=== PATIENT | female | born 1935 | race Caucasian/White ===

== ENCOUNTER 2018-12-07 10:02 | Inpatient (IN) ==
[2018-12-07] MEDS ORDERED: CARVEDILOL 6.25 MG TABLET PO ONE (10:30)
--- NOTE | 2018-12-07 11:00 | XRay Report ---
CLINICAL INFORMATION: weakness COMPARISON: 12/03/2018 FINDINGS: Moderate cardiomegaly is noted. Slight thoracic aortic ectasia is stable - the remaining mediastinum and pulmonary vessels are unremarkable. There is minor bibasilar atelectasis, but no mario infiltrates or effusions IMPRESSION: No acute disease Interpreted and Authenticated by: Johan Mcclain 12/07/18
[2018-12-07 11:32] LABS: Basophils # (Auto) 0 K/mcL (0.0-0.3); Basophils % (Auto) 0.2 % (0.0-2.0); Eosinophils # (Auto) 0.2 K/mcL (0.0-0.7); Eosinophils % (Auto) 1.3 % (0.0-7.0); Granulocytes % (Auto) 79.8 % (38.0-78.0); Hematocrit 37.9 % (36.0-48.0); Lymphocytes # (Auto) 1.5 K/mcL (1.5-4.8); Mean Cell Volume 93.5 fL (80.0-100.0); Mean Corpuscular HGB Conc 31.6 g/dL (31.0-36.0); Mean Platelet Volume 8.8 fL (7.4-10.4); Monocytes # (Auto) 0.8 K/mcL (0.1-0.9); Monocytes % (Auto) 6.7 % (1.0-12.0); Platelet Count 317 K/mcL (140-440); RBC 4.05 M/mcL (4.00-5.20); WBC 12.5 K/mcL (4.5-11.0)
--- NOTE | 2018-12-07 11:32 | Emergency Department Note ---
SOB HPI - General Chief Complaint: Shortness of Breath/Dyspnea Stated Complaint: Shortness of breath Time Seen by Provider: 12/07/18 10:08 Source: patient Mode of arrival: wheelchair Limitations: no limitations - History of Present Illness 83-year-old female presents today at the emergency department with new onset A. fib, and was seen by her primary care in [facility]. She was instructed to come the emergency department. She states that she has felt tired for about one month. She denies any chest pains, or difficulty breathing. She has occasionally felt short of breath. She denies any edema. She currently is taking atorvastatin 80 mg tablet, frusemide 40 mg tablet, magnesium 400 mg capsule, metoprolol 25 mg extended release, and omeprazole 20 mg extended release. She takes 20 mEq of potassium chloride and 400 mg of Advil at bedtime. All of the other remaining medications are once a day dosing. She reports that she feels relatively well. She apparently has not been seen by primary care provider for over a year, and when she was seen by her primary care provider last week there is a noticeable increase in the creatinine level which on December 03, 2018 this was 3.63, BUN was 60.33, and GFR 12.70. The rest of the CMP is unremarkable. Her white count was 13.07, hemoglobin and hematocrit was normal. Platelets normal at 341. Prior records show that she has had a reversible inferior wall defect on the nuclear imaging of the arch and ejection fraction was 41% back in 2015. - Related Data Home Medications Medication Instructions Recorded Confirmed Aspirin [Casa Chewable Aspirin] 81 mg PO DAILY 03/01/16 12/07/18 Atorvastatin [Lipitor] 80 mg PO HS 03/01/16 12/07/18 Metoprolol Succinate [Toprol Xl] 25 mg PO DAILY 03/01/16 12/07/18 Omeprazole [Prilosec] 20 mg PO DAILY 03/01/16 12/07/18 Furosemide [Lasix] 40 mg PO DAILYP PRN 12/07/18 12/07/18 Magnesium Oxide [Magnesium] 400 mg PO HS 12/07/18 12/07/18 Potassium Chloride [Kdur] 20 meq PO DAILY 12/07/18 12/07/18 Allergies Allergy/AdvReac Type Severity Reaction Status Date / Time Zolpidem AdvReac Severe Vomiting Verified 03/01/16 15:30 Review of Systems All systems ED: reviewed and negative except as stated. Past Medical History - Past Medical History Medical history: Reports: CHF, hypertension, renal disease Surgical history ED: Reports: colostomy - Social History smoking status: Former smoker Physical Exam Limitations: no limitations General appearance: alert, in no apparent distress Eye: Present: normal appearance, PERRL, EOMI. Absent: scleral icterus, conjunctival injection ENT: mucous membranes dry Neck: Present: normal inspection, full ROM, trachea midline. Absent: lymph adenopathy, thyromegaly Chest: Present: normal inspection, symmetric chest wall rise Respiratory: Present: normal lung sounds bilaterally. Absent: respiratory distress, rales/crackles, wheezes, stridor, accessory muscle use, prolonged expiratory phase Cardiovascular: Present: regular rate, normal rhythm. Absent: systolic murmur, diastolic murmur Abdominal: Present: soft. Absent: distention, tenderness, guarding, rebound, rigidity, organomegaly, mass Extremities: Present: normal inspection, full ROM, normal capillary refill. Absent: pedal edema, pretibial edema, calf tenderness Back: Present: normal inspection. Absent: CVA tenderness (R), CVA tenderness (L) Neurological: Present: alert, oriented X3 Psychiatric: Present: normal affect, normal mood Skin: Present: warm, dry Course Vital Signs Respiratory Rate 18 12/07/18 10:06 Pulse Oximetry (%) 94 12/07/18 10:06 Pulse Rate 99 H 12/07/18 16:17 Respiratory Rate 19 12/07/18 16:17 Blood Pressure 102/91 12/07/18 16:16 Pulse Oximetry (%) 98 12/07/18 16:17 Shortness of Breath/Dyspnea - [facility] Narrative Medical decision making narrative: Labs from March 02, 2016 showed a creatinine level of 3.1, and what appears to be in a hospital stay the course of the labs seem to improve over the next 3 days and then March 05, 2016 creatinine level was 1.4. Urinalysis today is showing leukocytes, red blood cells, and few bacteria. Patient was given 1 g Rocephin IV to treat UTI. Troponin level today is negative and the TSH is normal. She did show A. fib with RVR and rate of 140. She was given oral AV nodule katia, and the rate did decrease below 100 and was sustained around 95.Patient has new onset A. fib and will be admitted to medical floor at [facility]. Dr Dee accepted the patient for admission. Patient was given 500 mL of normal saline here in the emergency department for hydration. She does have very dry mucous membranes. She has no edema, and her chest x-ray looks rather well. Her proBNP is elevated at 7673, but the kidney function may improve with hydration. Dr. Taylor had also seen the patient today and he had spoke with cardiology. Patient will be admitted to [facility]. - Lab Data Result diagrams: 12/07/18 10:50 12/07/18 10:50 Lab Results 12/07/18 12/07/18 12/07/18 Range/Units 10:50 10:50 10:50 WBC 12.5 H (4.5-11.0) K/mcL RBC 4.05 (4.00-5.20) M/mcL Hgb 12.0 (12.0-15.0) g/dL Hct 37.9 (36.0-48.0) % MCV 93.5 (80.0-100.0) fL MCH 29.5 (26.0-34.0) pg MCHC 31.6 (31.0-36.0) g/dL RDW 14.0 (11.5-14.5) % Plt Count 317 (140-440) K/mcL MPV 8.8 (7.4-10.4) fL Gran % 79.8 H (38.0-78.0) % Lymph % (Auto) 12.0 L (15.5-49.0) % [place] % (Auto) 6.7 (1.0-12.0) % Eos % (Auto) 1.3 (0.0-7.0) % Baso % (Auto) 0.2 (0.0-2.0) % Gran # 10.0 H (1.8-8.0) K/mcL Lymph # (Auto) 1.5 (1.5-4.8) K/mcL [place] # (Auto) 0.8 (0.1-0.9) K/mcL Eos # (Auto) 0.2 (0.0-0.7) K/mcL Baso # (Auto) 0 (0.0-0.3) K/mcL VBG Lactic Acid (0.5-2.0) mmol/L Sodium 140 (133-145) mmol/L Potassium 4.2 (3.3-5.1) mmol/L Chloride 111 H (96-108) mmol/L Carbon Dioxide 12 L (22-30) mmol/L Anion Gap 17.0 H (8-16) BUN 54 H (8-23) mg/dl Creatinine 3.0 H (0.6-1.1) mg/dl GFR Calculation 14 Glucose 121 H (70-105) mg/dL Calcium 8.4 L (8.6-10.4) mg/dl Total Bilirubin 0.2 (0.0-1.0) mg/dL AST 22 (0-37) U/l ALT 20 (0-40) U/l Alkaline Phosphatase 126 H (39-117) U/L Troponin T < 0.01 (0-0.03) ng/ml NT-Pro-B Natriuret Pep (0-450) pg/ml Total Protein 7.6 (5.9-8.4) gm/dL Albumin 3.2 (3.2-5.2) gm/dL Globulin 4.4 H (2.2-3.7) gm/dL Albumin/Globulin Ratio 0.7 L (1.0-2.3) Procalcitonin (<0.10) ng/mL Urine Color Urine Appearance Urine pH (5.0-9.0) Ur Specific [place] (1.000-1.035) Urine Protein (NEG) mg/dL Urine Glucose (UA) (NEG) mg/dL Urine Ketones (NEG) mg/dL Urine Occult Blood (<0.03) mg/dL Urine Nitrate (NEG) Urine Bilirubin (NEG) mg/dL Urine Urobilinogen (NEG) mg/dL Ur Leukocyte Esterase (NEG) /uL Urine RBC (0-1) /hpf Urine WBC (0-4) /hpf Ur Squamous Epith Cells (0-4) /hpf Ur Transition Epith Cell (0-2) /hpf Ur Renal Epithelial Cell (0-2) /hpf Amorphous Crystals (0) /hpf Urine Bacteria (0) /hpf Hyaline Casts (0-2) /lpf Ur Culture Indicated? 12/07/18 12/07/18 12/07/18 Range/Units 10:50 10:50 11:32 WBC (4.5-11.0) K/mcL RBC (4.00-5.20) M/mcL Hgb (12.0-15.0) g/dL Hct (36.0-48.0) % MCV (80.0-100.0) fL MCH (26.0-34.0) pg MCHC (31.0-36.0) g/dL RDW (11.5-14.5) % Plt Count (140-440) K/mcL MPV (7.4-10.4) fL Gran % (38.0-78.0) % Lymph % (Auto) (15.5-49.0) % [place] % (Auto) (1.0-12.0) % Eos % (Auto) (0.0-7.0) % Baso % (Auto) (0.0-2.0) % Gran # (1.8-8.0) K/mcL Lymph # (Auto) (1.5-4.8) K/mcL [place] # (Auto) (0.1-0.9) K/mcL Eos # (Auto) (0.0-0.7) K/mcL Baso # (Auto) (0.0-0.3) K/mcL VBG Lactic Acid (0.5-2.0) mmol/L Sodium (133-145) mmol/L Potassium (3.3-5.1) mmol/L Chloride (96-108) mmol/L Carbon Dioxide (22-30) mmol/L Anion Gap (8-16) BUN (8-23) mg/dl Creatinine (0.6-1.1) mg/dl GFR Calculation Glucose (70-105) mg/dL Calcium (8.6-10.4) mg/dl Total Bilirubin (0.0-1.0) mg/dL AST (0-37) U/l ALT (0-40) U/l Alkaline Phosphatase (39-117) U/L Troponin T (0-0.03) ng/ml NT-Pro-B Natriuret Pep 7673.0 H (0-450) pg/ml Total Protein (5.9-8.4) gm/dL Albumin (3.2-5.2) gm/dL Globulin (2.2-3.7) gm/dL Albumin/Globulin Ratio (1.0-2.3) Procalcitonin 0.12 (<0.10) ng/mL Urine Color Yellow Urine Appearance Turbid Urine pH 6.0 (5.0-9.0) Ur Specific [place] 1.015 (1.000-1.035) Urine Protein 100 A (NEG) mg/dL Urine Glucose (UA) Negative (NEG) mg/dL Urine Ketones Neg (NEG) mg/dL Urine Occult Blood 0.2 A (<0.03) mg/dL Urine Nitrate Neg (NEG) Urine Bilirubin Neg (NEG) mg/dL Urine Urobilinogen Neg (NEG) mg/dL Ur Leukocyte Esterase 500 A (NEG) /uL Urine RBC > 182 H (0-1) /hpf Urine WBC > 182 H (0-4) /hpf Ur Squamous Epith Cells 16 H (0-4) /hpf Ur Transition Epith Cell (0-2) /hpf Ur Renal Epithelial Cell (0-2) /hpf Amorphous Crystals (0) /hpf Urine Bacteria Few A (0) /hpf Hyaline Casts 28 H (0-2) /lpf Ur Culture Indicated? No 12/07/18 12/07/18 Range/Units 14:31 14:55 WBC (4.5-11.0) K/mcL RBC (4.00-5.20) M/mcL Hgb (12.0-15.0) g/dL Hct (36.0-48.0) % MCV (80.0-100.0) fL MCH (26.0-34.0) pg MCHC (31.0-36.0) g/dL RDW (11.5-14.5) % Plt Count (140-440) K/mcL MPV (7.4-10.4) fL Gran % (38.0-78.0) % Lymph % (Auto) (15.5-49.0) % [place] % (Auto) (1.0-12.0) % Eos % (Auto) (0.0-7.0) % Baso % (Auto) (0.0-2.0) % Gran # (1.8-8.0) K/mcL Lymph # (Auto) (1.5-4.8) K/mcL [place] # (Auto) (0.1-0.9) K/mcL Eos # (Auto) (0.0-0.7) K/mcL Baso # (Auto) (0.0-0.3) K/mcL VBG Lactic Acid 1.2 (0.5-2.0) mmol/L Sodium (133-145) mmol/L Potassium (3.3-5.1) mmol/L Chloride (96-108) mmol/L Carbon Dioxide (22-30) mmol/L Anion Gap (8-16) BUN (8-23) mg/dl Creatinine (0.6-1.1) mg/dl GFR Calculation Glucose (70-105) mg/dL Calcium (8.6-10.4) mg/dl Total Bilirubin (0.0-1.0) mg/dL AST (0-37) U/l ALT (0-40) U/l Alkaline Phosphatase (39-117) U/L Troponin T (0-0.03) ng/ml NT-Pro-B Natriuret Pep (0-450) pg/ml Total Protein (5.9-8.4) gm/dL Albumin (3.2-5.2) gm/dL Globulin (2.2-3.7) gm/dL Albumin/Globulin Ratio (1.0-2.3) Procalcitonin (<0.10) ng/mL Urine Color Yellow Urine Appearance Cloudy Urine pH 6.0 (5.0-9.0) Ur Specific [place] 1.020 (1.000-1.035) Urine Protein 100 A (NEG) mg/dL Urine Glucose (UA) Negative (NEG) mg/dL Urine Ketones Neg (NEG) mg/dL Urine Occult Blood 2+ (moderate) A (<0.03) mg/dL Urine Nitrate Neg (NEG) Urine Bilirubin Neg (NEG) mg/dL Urine Urobilinogen Norm (NEG) mg/dL Ur Leukocyte Esterase 3+ (large) A (NEG) /uL Urine RBC 6 H (0-1) /hpf Urine WBC > 182 H (0-4) /hpf Ur Squamous Epith Cells 0 (0-4) /hpf Ur Transition Epith Cell 1 (0-2) /hpf Ur Renal Epithelial Cell 1 (0-2) /hpf Amorphous Crystals Mod A (0) /hpf Urine Bacteria Mod (0) /hpf Hyaline Casts (0-2) /lpf Ur Culture Indicated? No - Radiology Data Ordering Physician: Jomar Taylor M.D. Date of Service: 12/07/18 Procedure(s): XR chest 1V portable Accession Number(s): [id number] CLINICAL INFORMATION: weakness COMPARISON: 12/03/2018 FINDINGS: Moderate cardiomegaly is noted. Slight thoracic aortic ectasia is stable - the remaining mediastinum and pulmonary vessels are unremarkable. There is minor bibasilar atelectasis, but no mario infiltrates or effusions IMPRESSION: No acute disease Interpreted and Authenticated by: Johan Mcclain 12/07/18 1056 Disposition Pt seen by [facility] only: No (Dr. Taylor) Clinical Impression: UTI (urinary tract infection), A-fib Disposition: Xfer As Inpt ([facility]) Condition: Fair Referrals: Oliverio Yanez PAMarek[facility] [Primary Care Provider] -
[2018-12-07 11:53] LABS: ALT/SGPT 20 U/l (0-40); AST/SGOT 22 U/l (0-37); Albumin 3.2 gm/dL (3.2-5.2); Albumin/Globulin Ratio 0.7 (1.0-2.3); Alkaline Phosphatase 126 U/L (39-117); Bilirubin,Total 0.2 mg/dL (0.0-1.0); Blood Urea Nitrogen 54 mg/dl (8-23); Calcium 8.4 mg/dl (8.6-10.4); Carbon Dioxide 12 mmol/L (22-30); Chloride 111 mmol/L (96-108); Globulin 4.4 gm/dL (2.2-3.7); Glomerular Filtration Rate 14; Glucose 121 mg/dL (70-105); Potassium 4.2 mmol/L (3.3-5.1); Sodium 140 mmol/L (133-145)
[2018-12-07 12:07] LABS: Appearance,Urine TURBID; Bacteria,Urine FEW /hpf (0); Bilirubin,Urine NEG (NEG); Color,Urine YELLOW; Culture Indicated,Urine NO; Glucose,Urine (UA) NEGATIVE (NEG); Ketones,Urine NEG (NEG); Leukocyte Esterase,Urine 500 /uL (NEG); Nitrate,Urine NEG (NEG); Protein,Urine 100 mg/dL (NEG); Specific Gravity,Urine 1.015 (1.000-1.035); Urine Blood 0.2 mg/dL (<0.03); Urine Hyaline Cast 28 /lpf (0-2); Urine RBC > 182 /hpf (0-1); Urine Squamous Epithelial Cell 16 /hpf (0-4); Urine WBC > 182 /hpf (0-4); Urobilinogen,Urine NEG (NEG)
[2018-12-07] MEDS ORDERED: 0.9 % SODIUM CHLORIDE 500 ML IV ONE (12:22)
[2018-12-07] MEDS ORDERED: ASPIRIN 81 MG TAB.CHEW CHEWED ONE (12:49)
[2018-12-07] MEDS ORDERED: cefTRIAXone 1 GM VIAL IM ONE (12:57)
[2018-12-07] MEDS ORDERED: cefTRIAXone 1 GM VIAL IV ONE (13:22)
--- NOTE | 2018-12-07 14:50 | Internal Med History&Physical ---
Medical - H&P: HPI Patient information: Note initiated : 12/07/18 at 2:46 pm Service Date, if different from initiated Date: [] Patient: Jessie Domingo 83 y/o F admitted on for Shortness of breath. Chief Complaint: [] History of present illness: Ms. Domingo is a 83 year old F Presents to the ED with weakness and new A. fib. She was seen in the pulmonary clinic last week and an outpatient labs and EKG were reviewed today she is found to have elevated BUN/creatinine and A. fib. Patient has not seen if primary care provider since she got out of the hospital at [facility] in 2016 Patient's has some weakness but not particularly worse than usual. She does have some shortness of breath but she said that for 3 or 4 years. She did have some nausea and retching about a week or so ago. Denies any palpitations or tachycardiaor, she says occasionally she will get a very sharp right-sided chest pain lasts for a split second and then goes away. Denies any leg swelling. She says she used to long time ago but has not had any lately. She does not follow with matcher offbearer. Old records show a nuclear stress test EF of 40% 2015 an echo around that time showed diastolic grade 3. Follow-up echo in May showed an EF over 50% and grade 2 diastolic dysfunction. Pulmonary records show creatinine 3.6 she is currently 3.0. She had a white blood cell count of 13 at [place] and urine that was concerning for urinary tract infection. TSH is within normal limits on pulmonary labs and troponin is negative. Chest x-ray in the ED unremarkable. She was in A. fib RVR with rate of 140 and given oral AV den katia with rate around 100. Urinalysis although 10 with squamous is elevated leukocyte and WBCs as well as hyaline casts, repeat analysis pending. Chest x-ray with cardiomegaly but no edema. Review of Systems: Pertinent positives above. Denies headache/fever/chills/vomiting/abdominal pain/diarrhea. Remaining 10 point review of system reviewed negative Medical - H&P: PMH Medical history: Medical History CHF diastolic Chronic kidney disease stage IIIb-IV COPD anxiety Hypertension Hyperlipidemia Eczema Past surgical history: Ostomy for ischemic bowel ankle Family history: States her mother had heart disease Father is healthy Social history: Former smoker Denies alcohol use Uses a cane or walker when she goes outside the house Lives by herself Medical - H&P: Meds Home Medications Medication Instructions Recorded Confirmed Type Aspirin [Casa Chewable Aspirin] 81 mg PO DAILY 03/01/16 12/07/18 History Atorvastatin [Lipitor] 80 mg PO HS 03/01/16 12/07/18 History Metoprolol Succinate [Toprol Xl] 25 mg PO DAILY 03/01/16 12/07/18 History Omeprazole [Prilosec] 20 mg PO DAILY 03/01/16 12/07/18 History Furosemide [Lasix] 40 mg PO DAILYP PRN 12/07/18 12/07/18 History Magnesium Oxide [Magnesium] 400 mg PO HS 12/07/18 12/07/18 History Potassium Chloride [Kdur] 20 meq PO DAILY 12/07/18 12/07/18 History Allergies Allergy/AdvReac Type Severity Reaction Status Date / Time Zolpidem AdvReac Severe Vomiting Verified 03/01/16 15:30 Medical - H&P: Exam - Constitutional Vitals: Pulse Resp BP Pulse Ox 32 L 24 H 82/51 89 L 12/07/18 12:26 12/07/18 13:32 12/07/18 13:32 12/07/18 12:26 Exam: General: Alert, Awake, No acute Distress Eyes/N/T: EOMI, PEERL, DMM Head/Neck: neck supple, normocephalic atraumatic CV: irreg irreg, No murmurs, Pulm: Mild fine rales at bases worse on the right , no wheezing Abd: soft, nontender, +BS x4, ostomy in place Ext: no clubbing/cyanosis/edema Neuro: Alert, no focal deficits, moves all extremities, CN 2-12 grossly intact, symmetrical strength b/l upper/lower, sensations intact b/l upper/lower Skin: warm/dry, eczematous, poor skin turgor Medical - H&P: Reslt - Labs CBC & Chem 7: 12/07/18 10:50 12/07/18 10:50 Labs: Short CBC 12/07/18 Range/Units 10:50 WBC 12.5 H (4.5-11.0) K/mcL Hgb 12.0 (12.0-15.0) g/dL Hct 37.9 (36.0-48.0) % Plt Count 317 (140-440) K/mcL BMP 12/07/18 10:50 Sodium 140 Potassium 4.2 Chloride 111 H Carbon Dioxide 12 L BUN 54 H Creatinine 3.0 H Glucose 121 H Calcium 8.4 L Cardiac Enzymes 12/07/18 Range/Units 10:50 Troponin T < 0.01 (0-0.03) ng/ml Liver Function 12/07/18 Range/Units 10:50 Total Bilirubin 0.2 (0.0-1.0) mg/dL AST 22 (0-37) U/l ALT 20 (0-40) U/l Alkaline Phosphatase 126 H (39-117) U/L Albumin 3.2 (3.2-5.2) gm/dL Urine 12/07/18 Range/Units 11:32 Urine Color Yellow Urine Appearance Turbid Urine pH 6.0 (5.0-9.0) Ur Specific [place] 1.015 (1.000-1.035) Urine Protein 100 A (NEG) mg/dL Urine Glucose (UA) Negative (NEG) mg/dL - Impressions Checked with cardiomegaly but no acute pathology or edema Medical - H&P: A/P - Narrative A/P Narrative: A: *AFib rvr(?new): *?NATHALIA (unknown baseline) on CKD IIIb-IV: *Met acidosis: *UTI: *h/o diastolilc CHF: *HTN/HLD: *GERD *Anxiety: P: -wean of dilt trip to -echo pending -LR IVF's, ?bicarb -nephro consult -Rocephin pending - -f/u with cardio and nephrology outpt -ppx: renally dose lovenox-warfarin bridge DNR
[2018-12-07 15:47] LABS: Appearance,Urine CLOUDY; Bacteria,Urine MOD /hpf (0); Bilirubin,Urine NEG (NEG); Color,Urine YELLOW; Culture Indicated,Urine NO; Glucose,Urine (UA) NEGATIVE (NORM); Ketones,Urine NEG (NEG); Leukocyte Esterase,Urine 3+ (LARGE) /mcL (NEG); Nitrate,Urine NEG (NEG); Protein,Urine 100 mg/dL (<25); Urine Amorphous Crystals MOD /hpf (0); Urine Blood 2+ (MODERATE) ery/mcL (<5); Urine RBC 6 /hpf (0-1); Urine Renal Epithelial Cells 1 /hpf (0-2); Urine Squamous Epithelial Cell 0 /hpf (0-4); Urine Transitional Epi Cells 1 /hpf (0-2); Urine WBC > 182 /hpf (0-4); Urobilinogen,Urine NORM (NORM)
[2018-12-07] MEDS ORDERED: ONDANSETRON 4 MG/2 ML VIAL IV PRN (16:41)
[2018-12-07] MEDS ORDERED: cefTRIAXone 1 GM in DEXTROSE 5% IN WATER 50 ML IV SCH (16:41)
[2018-12-07] MEDS ORDERED: METOPROLOL TARTRATE 5 MG/5 ML VIAL IV PRN (16:41)
[2018-12-07] MEDS ORDERED: LACTATED RINGERS 1,000 ML IV SCH (16:41)
[2018-12-07] MEDS ORDERED: LACTULOSE 20 GM/30 ML ORAL.SOL PO PRN (16:41)
[2018-12-07] MEDS ORDERED: PROMETHAZINE 25 MG TABLET PO PRN (16:41)
[2018-12-07] MEDS ORDERED: POLYETHYLENE GLYCOL 3350 17 GM PACKET PO PRN (16:41)
[2018-12-07] MEDS ORDERED: PROCHLORPERAZINE 10 MG/2 ML VIAL IV PRN (16:41)
[2018-12-07] MEDS ORDERED: SODIUM BICARBONATE 50 MEQ/50 ML VIAL IV ONE (16:41)
[2018-12-07] MEDS ORDERED: IPRATROPIUM/ALBUTEROL 3 ML AMPUL.NEB NEB PRN (16:41)
[2018-12-07] MEDS ORDERED: WARFARIN 3 MG TABLET PO ONE (17:00)
[2018-12-07 17:50] LABS: Band Neutrophils % 1 % (0-10); Eosinophils % (Manual) 2 % (0-7); Lymphocytes % 5 % (15-49); Monocytes % (Manual) 9 % (1-12); Platelet Estimate NORMAL (NORMAL); RBC Morphology NORMAL (NORMAL); Segmented Neutrophils % 83 % (38-78)
--- NOTE | 2018-12-07 17:52 | Nephrology Consult Note ---
History of Present Illness - Reason for Consult Patient information: Note initiated : 12/07/18 at 5:50 pm Patient: Jessie Domingo 83 y/o F admitted on 12/07/18 for Shortness of breath. Consult date: 12/07/18 acute renal failure, chronic renal failure, metabolic acidosis Requesting physician: Nahid Dee - Chief Complaint Weakness - History of Present Illness Jessie Domingo is an 83-year-old female with suspected chronic kidney disease sent to ED for acute kidney injury. Her serum creatinine was 1.4 in 2016. She does not remember seeing a calf skinner. Her major complaint is weakness. She was sent to ED after blood work was abnormal. In ED work up was significant for suspected urinary tract infection. Review of Systems Constitutional: weakness, no headache(s) Nose, mouth and throat: no nasal congestion, no sore throat Cardiovascular: no chest pain, no palpatations Respiratory: no dyspnea, no wheezing Gastrointestinal: no abdominal pain, no diarrhea Genitourinary: urinary incontinence, no hematuria Musculoskeletal: no joint swelling, no neck pain Integumentary: no rash, no wounds Neurological: no confusion, no focal weakness Psychiatric: no anxiety, no panic attacks Endocrine: no cold intolerance, no heat intolerance Hematologic/Lymphatic: no easy bleeding, no easy bruising Allergic/Immunologic: no tongue swelling, no uticaria Past History Past medical history: Medical History UTI (urinary tract infection) (Chronic) Muscle weakness (Chronic) Joint pain (Chronic) Memory impairment (Chronic) Gait disturbance (Chronic) Dizziness (Chronic) Cold intolerance (Chronic) Dysuria (Chronic) Decreased appetite (Chronic) Chest pain (Chronic) Dyspnea (Chronic) Hearing loss (Chronic) Weight loss (Chronic) Malaise (Chronic) Fever (Chronic) Fatigue (Chronic) Bradycardia (Chronic) Leg pain (Chronic) Low back pain (Chronic) CKD (chronic kidney disease), stage III (Chronic) Congestive heart failure (Chronic) Acute coronary syndrome (Chronic) Atrial fibrillation (Chronic) Acute on chronic renal failure (Acute) Metabolic acidosis (Acute) HTN (hypertension) (Chronic) Osteoarthritis of lower back (Chronic) Past surgical history: Past Surgical History History of abdominal surgery (Chronic) Past family history: No family history of kidney disease Past social history: Former smoker Medications and Allergies Home Medications Medication Instructions Recorded Confirmed Type Aspirin [Casa Chewable Aspirin] 81 mg PO DAILY 03/01/16 12/07/18 History Atorvastatin [Lipitor] 80 mg PO HS 03/01/16 12/07/18 History Metoprolol Succinate [Toprol Xl] 25 mg PO DAILY 03/01/16 12/07/18 History Omeprazole [Prilosec] 20 mg PO DAILY 03/01/16 12/07/18 History Furosemide [Lasix] 40 mg PO DAILYP PRN 12/07/18 12/07/18 History Magnesium Oxide [Magnesium] 400 mg PO HS 12/07/18 12/07/18 History Potassium Chloride [Kdur] 20 meq PO DAILY 12/07/18 12/07/18 History Allergies Allergy/AdvReac Type Severity Reaction Status Date / Time Zolpidem AdvReac Severe Vomiting Verified 03/01/16 15:30 Exam - Vital Signs Vital signs: Temp Pulse Resp BP Pulse Ox 98.2 F 99 H 19 102/91 98 12/07/18 16:28 12/07/18 16:45 12/07/18 16:45 12/07/18 16:45 12/07/18 16:45 - General Appearance General appearance: appears started age EENT: mucous membranes moist Neck: supple Respiratory: clear Cardiology: no edema Gastrointestinal: no tenderness Integumentary: warm and dry Neurologic: no focal deficit, alert and oriented x3 Musculoskeletal: no deformities Psychiatric: mood/affect appropriate, cooperative Results - Lab Results 12/07/18 10:50 12/07/18 10:50 Most recent lab results Calcium 8.4 mg/dl (8.6-10.4) L 12/07/18 10:50 Assessment and Plan (1) Acute on chronic renal failure Acute kidney injury on suspected chronic kidney disease stage 3 with suspected acute urinary tract infection and metabolic acidosis associated with NSAIDs. No history of recent IV contrast administration. Plan: No need for acute hemodialysis tonight. Gentle IV fluid rehydration. Renal US requested. Status: Acute Priority: Medium Qualifiers: Acute renal failure type: unspecified Chronic kidney disease stage: stage 3 (moderate) Qualified Code(s): N17.9 - Acute kidney failure, unspecified; N18.3 - Chronic kidney disease, stage 3 (moderate) (2) Metabolic acidosis Please see above. Status: Acute Priority: Medium
[2018-12-07] MEDS: ENOXAPARIN 60 MG/0.6 ML SYRINGE SQ SCH (17:56)
[2018-12-07 18:26] LABS: INR 1.1 (0.9-1.1); Prothrombin Time 14.5 sec (11.9-14.5)
[2018-12-07] MEDS ORDERED: SENNOSIDES 1 TABLET PO PRN (21:00)
[2018-12-07] MEDS: 0.9 % SODIUM CHLORIDE 10 ML SYRINGE IV SCH (21:33)
[2018-12-07] MEDS: DOCUSATE SODIUM 100 MG CAPSULE PO SCH (21:33)
[2018-12-07] MEDS: FAMOTIDINE 20 MG TABLET PO SCH (21:33)
[2018-12-07] MEDS: METOPROLOL TARTRATE 25 MG TABLET PO SCH (21:33)
[2018-12-07] MEDS: diphenhydrAMINE 25 MG CAPSULE PO PRN (21:41)
--- NOTE | 2018-12-08 03:36 | Ultrasound Report ---
CLINICAL INFORMATION: Acute on chronic renal failure COMPARISON: Abdominal ultrasound 01/07/2009 FINDINGS: Both kidneys are mildly atrophic compared to the 2009 study: The right kidney is 8 x 4 cm and the left kidney is 9.4 x 4 cm (in 2009, both kidneys were approximately 11 x 5 cm). A 1.8 cm simple cyst in the left kidney is unchanged. There are scattered small nonobstructing stones in calyces of both kidneys. They range up to 8 mm. Mild left hydronephrosis noted. A Hutchinson catheter within the urinary bladder results in bladder decompression - no gross bladder abnormality IMPRESSION: 1. Mildly atrophic and hyperechoic kidneys compatible with advanced age and medical renal disease 2. Scattered small nonobstructing stones in the calyces of both kidneys ranging up to 8 mm. Mild left hydronephrosis suggest the possibility of an unidentified left ureteral stone. Consider: CT urogram 3. 1.8 cm simple cyst in the left kidney - stable Interpreted and Authenticated by: Johan Mcclain 12/08/18
[2018-12-08 05:37] LABS: Basophils # (Auto) 0 K/mcL (0.0-0.3); Basophils % (Auto) 0.3 % (0.0-2.0); Eosinophils # (Auto) 0.2 K/mcL (0.0-0.7); Eosinophils % (Auto) 2.6 % (0.0-7.0); Granulocytes % (Auto) 76.4 % (38.0-78.0); Hematocrit 32.7 % (36.0-48.0); Hemoglobin 10.5 g/dL (12.0-15.0); Lymphocytes # (Auto) 1.2 K/mcL (1.5-4.8); Lymphocytes % (Auto) 13.1 % (15.5-49.0); Mean Cell Volume 93.1 fL (80.0-100.0); Mean Platelet Volume 8.9 fL (7.4-10.4); Monocytes # (Auto) 0.7 K/mcL (0.1-0.9); Monocytes % (Auto) 7.6 % (1.0-12.0); Platelet Count 227 K/mcL (140-440); RBC 3.52 M/mcL (4.00-5.20); Red Cell Distribution Width 13.6 % (11.5-14.5); WBC 9.2 K/mcL (4.5-11.0)
[2018-12-08 05:51] LABS: INR 1.1 (0.9-1.1); Prothrombin Time 14.4 sec (11.9-14.5)
[2018-12-08] MEDS: 0.9 % SODIUM CHLORIDE 10 ML SYRINGE IV SCH ×3 (06:30→21:06)
[2018-12-08 06:32] LABS: ALT/SGPT 13 U/l (0-40); AST/SGOT 19 U/l (0-37); Albumin 2.6 gm/dL (3.2-5.2); Albumin/Globulin Ratio 0.7 (1.0-2.3); Alkaline Phosphatase 103 U/L (39-117); Bilirubin,Direct < 0.2 mg/dL (0.0-0.3); Bilirubin,Total 0.2 mg/dL (0.0-1.0); Blood Urea Nitrogen 55 mg/dl (8-23); Calcium 7.8 mg/dl (8.6-10.4); Carbon Dioxide 10 mmol/L (22-30); Chloride 114 mmol/L (96-108); Gamma Glutamyl Transpeptidase 32 U/L (5-36); Globulin 3.8 gm/dL (2.2-3.7); Glomerular Filtration Rate 14; Glucose 89 mg/dL (70-105); Lactate Dehydrogenase 274 U/L (94-250); Magnesium 1.1 mg/dL (1.6-2.5); Phosphorous 4.5 mg/dL (2.7-4.5); Potassium 4.4 mmol/L (3.3-5.1); Sodium 140 mmol/L (133-145); Triglycerides 151 mg/dl (<150)
[2018-12-08] MEDS ORDERED: MAGNESIUM SULFATE 2 GM/50 ML BAG IV ONE (06:44)
--- NOTE | 2018-12-08 06:50 | Nephrology Progress Note ---
Subjective Patient information: Note initiated : 12/08/18 at 6:47 am Patient: Jessie Domingo 83 y/o F admitted on 12/07/18 for Shortness of breath. Chief Complaint: Weakness Pertinent ROS: Weakness. Dizziness with hypotension. Urinary incontinence. No shortness of breath. Diarrhea: Green liquid ostomy output, not usual for her Objective - Vital Signs Vital signs: Vital Signs Temp Pulse Pulse Resp BP BP Pulse Ox 12/08/18 04:01 97.9 F 93 H 22 112/80 97 12/08/18 03:01 97 H 22 125/65 98 12/08/18 02:55 120 H 19 111/94 100 12/08/18 02:01 82 18 99 12/08/18 01:01 88 19 124/55 99 12/08/18 00:06 25 H 105/84 12/08/18 00:01 98.3 F 87 23 H 100/79 99 12/07/18 23:01 84 18 124/74 100 12/07/18 22:01 48 L 19 114/55 99 12/07/18 21:01 84 23 H 110/67 99 12/07/18 20:08 98.1 F 76 16 120/62 99 12/07/18 19:01 83 26 H 112/69 98 12/07/18 18:01 79 23 H 106/64 100 12/07/18 17:01 25 H 108/46 12/07/18 16:45 99 H 19 102/91 98 12/07/18 16:41 98.2 F 108 H 18 114/65 114/65 99 12/07/18 16:28 98.2 F 108 H 18 114/65 99 12/07/18 16:17 99 H 19 98 12/07/18 16:16 99 H 19 102/91 99 12/07/18 16:01 85 21 88/44 98 12/07/18 15:46 100 H 26 H 97/65 98 12/07/18 15:31 97 H 22 80/69 98 12/07/18 15:09 53 L 22 99 12/07/18 15:01 21 134/107 12/07/18 14:16 23 H 92/66 12/07/18 14:00 21 103/64 12/07/18 13:50 82 28 H 79/36 100 12/07/18 13:46 16 73/49 12/07/18 13:32 24 H 82/51 12/07/18 13:17 28 H 97/77 12/07/18 13:01 25 H 104/74 12/07/18 12:46 27 H 108/68 12/07/18 12:37 22 12/07/18 12:31 24 H 133/82 12/07/18 12:26 32 L 21 117/76 89 L 12/07/18 12:17 26 H 90/71 12/07/18 12:03 26 H 82/38 12/07/18 11:46 20 106/76 12/07/18 11:15 21 149/121 12/07/18 11:05 27 H 12/07/18 10:46 44 L 21 142/67 100 12/07/18 10:31 48 L 21 146/73 99 12/07/18 10:17 22 151/123 12/07/18 10:14 35 L 24 H 146/103 92 12/07/18 10:06 18 94 Intake and Output 12/07/18 12/08/18 12/08/18 21:59 05:59 13:59 Intake Total 240 Output Total 725 100 Balance 240 -725 -100 Intake: Oral 240 Output: Void Amount 325 100 Stool 400 Other: Meal Dinner Percent of Meal Consumed 100% Feeding Ability Assist with Tray Set Up Stool Size Moderate Stool Color Green Stool Consistency Watery Weight 131 lb 12.8 oz Intake & Output: Intake & Output 12/07/18 12/08/18 12/08/18 21:59 05:59 13:59 Intake Total 240 Output Total 725 100 Balance 240 -725 -100 Weight 131 lb 12.8 oz Intake: Oral 240 Output: Void Amount 325 100 Stool 400 Other: Meal Dinner Percent of Meal Consumed 100% Feeding Ability Assist with Tray Set Up Stool Size Moderate Stool Color Green Stool Consistency Watery - General Appearance General appearance: appears started age, frail EENT: mucous membranes moist Neck: supple Respiratory: clear Cardiology: no edema Gastrointestinal: no tenderness Integumentary: warm and dry Neurologic: no focal deficit, alert and oriented x3 Musculoskeletal: no deformities Psychiatric: mood/affect appropriate, cooperative - Lab 12/08/18 03:51 12/08/18 03:51 Most recent lab results Calcium 7.8 mg/dl (8.6-10.4) L 12/08/18 03:51 Phosphorus 4.5 mg/dL (2.7-4.5) 12/08/18 03:51 Magnesium 1.1 mg/dL (1.6-2.5) L 12/08/18 03:51 Assessment and Plan (1) Acute on chronic renal failure Jessie Domingo is an 83-year-old female with suspected chronic kidney disease sent to ED for acute kidney injury. Her serum creatinine was 1.4 in 2016. 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 Her major complaint is weakness. She was sent to ED after blood work was abnormal. In ED work up was significant for suspected urinary tract infection. Acute kidney injury on suspected chronic kidney disease stage 3 with suspected acute urinary tract infection and metabolic acidosis associated with NSAIDs. No history of recent IV contrast administration. Work up: Renal US on 12/07/18: Mildly atrophic and hyperechoic kidneys compatible with advanced age and medical renal disease. Scattered small nonobstructing stones in the calyces of both kidneys ranging up to 8 mm. Mild left hydronephrosis suggest the possibility of an unidentified left ureteral stone. Consider: CT urogram. 1.8 cm simple cyst in the left kidney - stable. Progress: Urine output: Incontinent, 425 ml reported overnight. Serum creatinine decreased from 3.0 to 2.9 in the past 24 hours. Metabolic acidosis, worsening. No fluid overload. No uremic symptoms. Plan: No need for acute hemodialysis. Status: Acute Priority: Medium Qualifiers: Acute renal failure type: unspecified Chronic kidney disease stage: stage 3 (moderate) Qualified Code(s): N17.9 - Acute kidney failure, unspecified; N18.3 - Chronic kidney disease, stage 3 (moderate) (2) Metabolic acidosis Associated with diarrhea and renal failure. Sodium Bicarbonate 150 mEq in 1L D5W at 50 ml/hour x 1L and to Sodium Bicarbonate 1300 mg PO QID ordered. Status: Acute Priority: Medium (3) Hypomagnesemia Magnesium Sulfate 2 gram IV ordered. Status: Acute Priority: Medium (4) Diarrhea Green liquid ostomy output. Plan: C diff toxin requested. Status: Acute Priority: Medium
[2018-12-08] MEDS ORDERED: SODIUM BICARBONATE VIAL 150 MEQ in DEXTROSE 5% IN WATER 850 ML IV SCH (07:00)
--- NOTE | 2018-12-08 07:30 | Internal Med Progress Note ---
Medical - PN: Subj Patient information: Note initiated : 12/08/18 at 7:22 am Service Date, if different from initiated Date: [] Patient: Jessie Domingo 83 y/o F admitted on 12/07/18 for Shortness of breath. Chief Complaint: [] Interval history: Ms. Domingo is a 83 year old F Presents to the ED with weakness and new A. fib. She was seen in the pulmonary clinic last week and an outpatient labs and EKG were reviewed today she is found to have elevated BUN/creatinine and A. fib. Patient has not seen if primary care provider since she got out of the hospital at [facility] in 2016 Patient's has some weakness but not particularly worse than usual. She does have some shortness of breath but she said that for 3 or 4 years. She did have some nausea and retching about a week or so ago. Denies any palpitations or tachycardiaor, she says occasionally she will get a very sharp right-sided chest pain lasts for a split second and then goes away. Denies any leg swelling. She says she used to long time ago but has not had any lately. 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 Old records show a nuclear stress test EF of 40% 2015 an echo around that time showed diastolic grade 3. Follow-up echo in May showed an EF over 50% and grade 2 diastolic dysfunction. Pulmonary records show creatinine 3.6 she is currently 3.0. She had a white blood cell count of 13 at [place] and urine that was concerning for urinary tract infection. TSH is within normal limits on pulmonary labs and troponin is negative. Chest x-ray in the ED unremarkable. She was in A. fib RVR with rate of 140 and given oral AV den katia with rate around 100. Urinalysis although 10 with squamous is elevated leukocyte and WBCs as well as hyaline casts, repeat analysis pending. Chest x-ray with cardiomegaly but no edema. 12/08 Says she feels little bit better but still weak. Having diarrhea overnight. No other overnight events. Bicarb down, renal function stable. Review of Systems: denies headache/fever/nausea/vomiting/chest or abdominal pain/cough/dyspnea. Otherwise see above. - Constitutional Vitals: Vital Signs Temp Pulse Resp BP Pulse Ox 97.9 F 93 H 22 112/80 97 12/08/18 04:01 12/08/18 04:01 12/08/18 04:01 12/08/18 04:01 12/08/18 04:01 Period Temp Pulse Resp BP Sys/Davies Pulse Ox Last 24 Hr 97.9 F-98.3 F 32-120 16-28 73-151/36-123 89-100 Intake and Output 12/07/18 12/08/18 12/08/18 21:59 05:59 13:59 Intake Total 240 Output Total 725 100 Balance 240 -725 -100 Weight 59.783 kg Intake & Output: Intake & Output 12/07/18 12/08/18 12/08/18 21:59 05:59 13:59 Intake Total 240 Output Total 725 100 Balance 240 -725 -100 Weight 59.783 kg Intake: Oral 240 Output: Void Amount 325 100 Stool 400 Other: Meal Dinner Percent of Meal Consumed 100% Feeding Ability Assist with Tray Set Up Stool Size Moderate Stool Color Green Stool Consistency Watery Exam: General: Alert, Awake, No acute Distress Eyes/N/T: EOMI, Head/Neck: neck supple, CV: irreg irreg, No murmurs, Pulm: Minimal fine rales right base, left clear, no wheezing Abd: soft, nontender, +BS x4, ostomy in place Ext: no clubbing/cyanosis/edema Neuro: Alert, no focal deficits, moves all extremities, Skin: warm/dry, eczematous, Medical - PN: Obj Da - Labs CBC & Chem 7: 12/08/18 03:51 12/08/18 03:51 Labs: Abnormal Lab Results 12/08/18 12/08/18 12/07/18 03:51 03:51 14:55 WBC RBC 3.52 L Hgb 10.5 L Hct 32.7 L Gran % Lymph % (Auto) 13.1 L Gran # Lymph # (Auto) 1.2 L Seg Neutrophils % Lymphocytes % Chloride 114 H Carbon Dioxide 10 L* Anion Gap BUN 55 H Creatinine 2.9 H Glucose Uric Acid 10.0 H Calcium 7.8 L Magnesium 1.1 L Alkaline Phosphatase Lactate Dehydrogenase 274 H NT-Pro-B Natriuret Pep Albumin 2.6 L Globulin 3.8 H Albumin/Globulin Ratio 0.7 L Triglycerides 151 H Urine Protein 100 A Urine Occult Blood 2+ (moderate) A Ur Leukocyte Esterase 3+ (large) A Urine RBC 6 H Urine WBC > 182 H Ur Squamous Epith Cells Amorphous Crystals Mod A Urine Bacteria Hyaline Casts 12/07/18 12/07/18 12/07/18 11:32 10:50 10:50 WBC RBC Hgb Hct Gran % Lymph % (Auto) Gran # Lymph # (Auto) Seg Neutrophils % 83 H Lymphocytes % 5 L Chloride Carbon Dioxide Anion Gap BUN Creatinine Glucose Uric Acid Calcium Magnesium Alkaline Phosphatase Lactate Dehydrogenase NT-Pro-B Natriuret Pep 7673.0 H Albumin Globulin Albumin/Globulin Ratio Triglycerides Urine Protein 100 A Urine Occult Blood 0.2 A Ur Leukocyte Esterase 500 A Urine RBC > 182 H Urine WBC > 182 H Ur Squamous Epith Cells 16 H Amorphous Crystals Urine Bacteria Few A Hyaline Casts 28 H 12/07/18 12/07/18 10:50 10:50 WBC 12.5 H RBC Hgb Hct Gran % 79.8 H Lymph % (Auto) 12.0 L Gran # 10.0 H Lymph # (Auto) Seg Neutrophils % Lymphocytes % Chloride 111 H Carbon Dioxide 12 L Anion Gap 17.0 H BUN 54 H Creatinine 3.0 H Glucose 121 H Uric Acid Calcium 8.4 L Magnesium Alkaline Phosphatase 126 H Lactate Dehydrogenase NT-Pro-B Natriuret Pep Albumin Globulin 4.4 H Albumin/Globulin Ratio 0.7 L Triglycerides Urine Protein Urine Occult Blood Ur Leukocyte Esterase Urine RBC Urine WBC Ur Squamous Epith Cells Amorphous Crystals Urine Bacteria Hyaline Casts Meds: Medications Albuterol/Ipratropium (Duoneb) 3 ml NEB Q4HP PRN PRN Reason: Shortness Of Breath Ceftriaxone Sodium (Rocephin) 1 gm IV DAILY [facility] Diphenhydramine HCl (Benadryl) 25 mg PO HSP PRN PRN Reason: Insomnia Last Admin: 12/07/18 21:41 Dose: 25 mg Documented by: Docusate Sodium (Colace) 100 mg PO BID [facility] Last Admin: 12/07/18 21:33 Dose: 100 mg Documented by: Enoxaparin Sodium (Lovenox) 60 mg SQ DAILY [facility] Last Admin: 12/07/18 17:56 Dose: 60 mg Documented by: Famotidine (Pepcid) 20 mg PO HS [facility] Last Admin: 12/07/18 21:33 Dose: 20 mg Documented by: Magnesium Sulfate (Magnesium Sulfate) 2 gm in 50 mls @ 25 mls/hr IV ONCE ONE Stop: 12/08/18 08:43 Sodium Bicarbonate 150 meq/ (Dextrose) 1,000 mls @ 50 mls/hr IV Q20H [facility] Stop: 12/09/18 02:59 Lactulose (Cephulac) 10 gm PO DAILYP PRN PRN Reason: Constipation Metoprolol Tartrate (Lopressor) 12.5 mg PO BID [facility] Last Admin: 12/07/18 21:33 Dose: 12.5 mg Documented by: Metoprolol Tartrate (Lopressor) 5 mg IV Q2HP PRN PRN Reason: Tachyarrhythmia HR>110 Ondansetron HCl (Zofran) 4 mg IV Q4HP PRN PRN Reason: Nausea And Vomiting Polyethylene Glycol (Miralax) 17 gm PO DAILYP PRN PRN Reason: Constipation Prochlorperazine (Compazine) 10 mg IV Q6HP PRN PRN Reason: Nausea And Vomiting Promethazine HCl (Phenergan) 0 mg PO Q6HP PRN PRN Reason: Nausea And Vomiting Senna (Senokot) 2 tab PO HSP PRN PRN Reason: Constipation Sodium Bicarbonate (Sodium Bicarbonate) 1,300 mg PO QID [facility] Sodium Chloride (Saline Flush) 10 ml IV Q8 [facility] Last Admin: 12/08/18 06:30 Dose: Not Given Documented by: Warfarin Sodium (Coumadin Per Pharmacy) 1 order PO UD [facility] Medical - PN: A/P - Time Spent With Patient Total time spent is greater than 50% in coordination of care (as documented) at patient's floor/unit and/or counseling patient: - Narrative A/P Narrative: A: *AFib rvr(found a week ago): *?NATHALIA (unknown baseline) on CKD IIIb-IV: -renal u/s with atrophy, nonobstructing stones, mild left hydro *Met acidosis, nongap: hyperchloremic, ?from diarrhea vs RTA (potassium ok however) vs *hypomag: *UTI: *h/o diastolilc CHF: *HTN/HLD: *GERD *Anxiety: *Diarrhea: P: -cont lopressor, titrate up if needed -echo pending -nephro consult, appreciate involvemen -bicarb drip -mag replacement, -Rocephin pending UC -c. diff pending, if neg consider checking stool osmotic gap -f/u with cardio and nephrology outpt as well -ppx: renally dose lovenox-warfarin bridge DNR Medical - PN: Qual - VTE Deep Vein Thrombosis/Pulmonary Embolism Present on Admission: No
[2018-12-08] MEDS: DOCUSATE SODIUM 100 MG CAPSULE PO SCH (08:54)
[2018-12-08] MEDS: SODIUM BICARBONATE 650 MG TABLET PO SCH ×5 (09:15→20:21)
[2018-12-08] MEDS: ENOXAPARIN 60 MG/0.6 ML SYRINGE SQ SCH (09:16)
[2018-12-08] MEDS: cefTRIAXone 1 GM VIAL IV SCH (09:16)
[2018-12-08] MEDS: METOPROLOL TARTRATE 25 MG TABLET PO SCH ×2 (09:16→20:21)
[2018-12-08] MEDS ORDERED: WARFARIN 3 MG TABLET PO ONE (17:00)
[2018-12-08] MEDS: FAMOTIDINE 20 MG TABLET PO SCH (20:21)
[2018-12-08] MEDS: diphenhydrAMINE 25 MG CAPSULE PO PRN (20:26)
[2018-12-09] MEDS: 0.9 % SODIUM CHLORIDE 10 ML SYRINGE IV SCH ×3 (05:42→21:50)
[2018-12-09 06:42] LABS: ALT/SGPT 10 U/l (0-40); AST/SGOT 14 U/l (0-37); Albumin 2.5 gm/dL (3.2-5.2); Albumin/Globulin Ratio 0.7 (1.0-2.3); Alkaline Phosphatase 99 U/L (39-117); Bilirubin,Direct < 0.2 mg/dL (0.0-0.3); Bilirubin,Total < 0.2 mg/dL (0.0-1.0); Blood Urea Nitrogen 46 mg/dl (8-23); Calcium 7.6 mg/dl (8.6-10.4); Carbon Dioxide 19 mmol/L (22-30); Chloride 107 mmol/L (96-108); Gamma Glutamyl Transpeptidase 32 U/L (5-36); Globulin 3.4 gm/dL (2.2-3.7); Glomerular Filtration Rate 17; Glucose 110 mg/dL (70-105); Lactate Dehydrogenase 185 U/L (94-250); Magnesium 1.6 mg/dL (1.6-2.5); Phosphorous 3.3 mg/dL (2.7-4.5); Potassium 3.6 mmol/L (3.3-5.1); Sodium 141 mmol/L (133-145); Triglycerides 134 mg/dl (<150); Uric Acid 9.1 mg/dL (2.5-8.0)
[2018-12-09 06:47] LABS: INR 1.1 (0.9-1.1); Prothrombin Time 14.3 sec (11.9-14.5)
--- NOTE | 2018-12-09 06:47 | Nephrology Progress Note ---
Subjective Patient information: Note initiated : 12/09/18 at 6:44 am Patient: Jessie Domingo 83 y/o F admitted on 12/07/18 for Shortness of breath. Chief Complaint: Weakness. Pertinent ROS: Weakness. Diarrhea improved. Objective - Vital Signs Vital signs: Vital Signs Temp Pulse Resp BP Pulse Ox 12/09/18 03:56 99.4 F H 50 L 22 122/87 98 12/09/18 01:35 55 L 19 99 12/09/18 01:05 99.9 F H 72 23 H 153/63 99 12/08/18 21:11 57 L 22 98 12/08/18 20:05 99.4 F H 72 18 144/92 98 12/08/18 16:04 97.5 F 67 20 156/67 98 12/08/18 14:00 98 12/08/18 13:01 18 144/82 12/08/18 12:11 62 25 H 129/66 99 12/08/18 10:50 62 18 99 12/08/18 10:01 73 24 H 112/58 99 12/08/18 09:50 73 19 125/74 100 12/08/18 09:01 18 104/62 12/08/18 08:03 16 154/77 12/08/18 08:00 99 12/08/18 07:43 79 27 H 112/75 88 L 12/08/18 07:37 22 88/61 12/08/18 07:07 52 L 21 115/64 100 12/08/18 07:01 48 L 24 H 112/83 81 L Intake and Output 12/08/18 12/09/18 12/09/18 21:59 05:59 13:59 Intake Total 1810 1240 Output Total 625 300 Balance 1185 940 Intake: IV 1050 1000 Oral 660 240 GI Tube Flush 100 Output: Void Amount 400 275 Stool 225 25 Other: Meal Dinner Percent of Meal Consumed 0% Feeding Ability Independent Urine Appearance Cloudy Cloudy Urine Color Straw Straw Urine Odor Strong Stool Size Moderate Moderate Stool Color Green Stool Consistency Watery Watery Weight 135 lb 9.6 oz Intake & Output: Intake & Output 12/08/18 12/09/18 12/09/18 21:59 05:59 13:59 Intake Total 1810 1240 Output Total 625 300 Balance 1185 940 Weight 135 lb 9.6 oz Intake: IV 1050 1000 Oral 660 240 GI Tube Flush 100 Output: Void Amount 400 275 Stool 225 25 Other: Meal Dinner Percent of Meal Consumed 0% Feeding Ability Independent Urine Appearance Cloudy Cloudy Urine Color Straw Straw Urine Odor Strong Stool Size Moderate Moderate Stool Color Green Stool Consistency Watery Watery - General Appearance General appearance: appears started age, fatigue EENT: mucous membranes moist Neck: supple Respiratory: clear Cardiology: no edema Gastrointestinal: no tenderness Integumentary: warm and dry Neurologic: no focal deficit, alert and oriented x3 Musculoskeletal: no deformities Psychiatric: mood/affect appropriate, cooperative - Lab 12/09/18 03:56 12/09/18 03:56 Most recent lab results Calcium 7.6 mg/dl (8.6-10.4) L 12/09/18 03:56 Phosphorus 3.3 mg/dL (2.7-4.5) 12/09/18 03:56 Magnesium 1.6 mg/dL (1.6-2.5) 12/09/18 03:56 Assessment and Plan (1) Acute on chronic renal failure Jessie Domingo is an 83-year-old female with suspected chronic kidney disease sent to ED for acute kidney injury. Her serum creatinine was 1.4 in 2016. 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 Her major complaint is weakness. She was sent to ED after blood work was abnormal. In ED work up was significant for suspected urinary tract infection. Acute kidney injury on suspected chronic kidney disease stage 3 associated with NSAIDs. No history of recent IV contrast administration. Work up: Renal US on 12/07/18: Mildly atrophic and hyperechoic kidneys compatible with advanced age and medical renal disease. Scattered small nonobstructing stones in the calyces of both kidneys ranging up to 8 mm. Mild left hydronephrosis suggest the possibility of an unidentified left ureteral stone. Consider: CT urogram. 1.8 cm simple cyst in the left kidney - stable. Progress: Urine output: Incontinent, 775 ml reported in the past 24 hours. Serum creatinine decreased from 2.9 to 2.5 in the past 24 hours. Metabolic acidosis, improved. No fluid overload. No uremic symptoms. Plan: No need for acute hemodialysis. Status: Acute Priority: Medium Qualifiers: Acute renal failure type: unspecified Chronic kidney disease stage: stage 3 (moderate) Qualified Code(s): N17.9 - Acute kidney failure, unspecified; N18.3 - Chronic kidney disease, stage 3 (moderate) (2) Metabolic acidosis Associated with diarrhea and renal failure. Plan: Sodium Bicarbonate 1300 mg PO QID. Status: Acute Priority: Medium (3) Hypomagnesemia Received Magnesium Sulfate 2 gram IV on 12/08/18. Status: Resolved Priority: Medium
[2018-12-09 06:56] LABS: Basophils # (Auto) 0 K/mcL (0.0-0.3); Basophils % (Auto) 0.1 % (0.0-2.0); Eosinophils # (Auto) 0.2 K/mcL (0.0-0.7); Eosinophils % (Auto) 2.7 % (0.0-7.0); Granulocytes % (Auto) 79.8 % (38.0-78.0); Hematocrit 29.8 % (36.0-48.0); Hemoglobin 9.5 g/dL (12.0-15.0); Lymphocytes # (Auto) 0.6 K/mcL (1.5-4.8); Lymphocytes % (Auto) 8.5 % (15.5-49.0); Mean Platelet Volume 8.8 fL (7.4-10.4); Monocytes # (Auto) 0.6 K/mcL (0.1-0.9); Monocytes % (Auto) 8.9 % (1.0-12.0); Platelet Count 214 K/mcL (140-440); RBC 3.21 M/mcL (4.00-5.20); Red Cell Distribution Width 13.6 % (11.5-14.5)
[2018-12-09] MEDS ORDERED: MAGNESIUM SULFATE 2 GM/50 ML BAG IV ONE (07:57)
[2018-12-09] MEDS ORDERED: POTASSIUM CHLORIDE 20 MEQ PACKET PO ONE (07:57)
--- NOTE | 2018-12-09 08:23 | Internal Med Progress Note ---
Medical - PN: Subj Patient information: Note initiated : 12/09/18 at 8:21 am Service Date, if different from initiated Date: [] Patient: Jessie Domingo 83 y/o F admitted on 12/07/18 for Shortness of breath. Chief Complaint: [] Interval history: Ms. Domingo is a 83 year old F Presents to the ED with weakness and new A. fib. She was seen in the pulmonary clinic last week and an outpatient labs and EKG were reviewed today she is found to have elevated BUN/creatinine and A. fib. Patient has not seen if primary care provider since she got out of the hospital at [facility] in 2016 Patient's has some weakness but not particularly worse than usual. She does have some shortness of breath but she said that for 3 or 4 years. She did have some nausea and retching about a week or so ago. Denies any palpitations or tachycardiaor, she says occasionally she will get a very sharp right-sided chest pain lasts for a split second and then goes away. Denies any leg swelling. She says she used to long time ago but has not had any lately. 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 Old records show a nuclear stress test EF of 40% 2015 an echo around that time showed diastolic grade 3. Follow-up echo in May showed an EF over 50% and grade 2 diastolic dysfunction. Pulmonary records show creatinine 3.6 she is currently 3.0. She had a white blood cell count of 13 at [facility] and urine that was concerning for urinary tract infection. TSH is within normal limits on pulmonary labs and troponin is negative. Chest x-ray in the ED unremarkable. She was in A. fib RVR with rate of 140 and given oral AV den katia with rate around 100. Urinalysis although 10 with squamous is elevated leukocyte and WBCs as well as hyaline casts, repeat analysis pending. Chest x-ray with cardiomegaly but no edema. 12/08 Says she feels little bit better but still weak. Having diarrhea overnight. No other overnight events. Bicarb down, renal function stable. 12/09 Patient seen examined, no acute issues, HR stable, bicarb up to 19, renal function improving, creat is 2.5 Patient feels weak, notes some pain in both her lower feet Cdiff is neg, start on banatrol Echo shows moderate to severely reduced lvef, pt on beta blockers, Pertinent ROS: Denies headache, dizziness Denies chest pain, palpitations Denies cough or shortness of breath Denies abdominal pain, nausea or vomiting. - Constitutional Vitals: Vital Signs Temp Pulse Resp BP Pulse Ox 98.1 F 78 19 107/95 96 12/09/18 08:01 12/09/18 08:01 12/09/18 08:01 12/09/18 08:01 12/09/18 08:01 Period Temp Pulse Resp BP Sys/Davies Pulse Ox Last 24 Hr 97.5 F-99.9 F 50-78 16-25 104-156/58-95 96-100 Intake and Output 12/08/18 12/09/18 12/09/18 21:59 05:59 13:59 Intake Total 1810 1240 Output Total 625 300 Balance 1185 940 Weight 135 lb 9.6 oz Intake & Output: Intake & Output 12/08/18 12/09/18 12/09/18 21:59 05:59 13:59 Intake Total 1810 1240 Output Total 625 300 Balance 1185 940 Weight 135 lb 9.6 oz Intake: IV 1050 1000 Oral 660 240 GI Tube Flush 100 Output: Void Amount 400 275 Stool 225 25 Other: Meal Dinner Percent of Meal Consumed 0% Feeding Ability Independent Urine Appearance Cloudy Cloudy Urine Color Straw Straw Urine Odor Strong Stool Size Moderate Moderate Stool Color Green Stool Consistency Watery Watery Exam: Constitutional; Afebrile, cooperative, alert, not in distress. old frail lady, Respiratory system: Air Entry equal on both sides, No crackles or wheezing, no rhonchi. CVS- Rate rhythm irregular, S1,S2 heard, no gallop, no rub. Abdomen- Soft nontender abdomen, no organomegaly, no tenderness, no guarding or rigidity, iliostomy in place YARDER BOSS- AOOx3, moving all extremities, no gross focal deficit noted. Extremities- long nails, dry thick skin. unkept Medical - PN: Obj Da - Labs CBC & Chem 7: 12/09/18 03:56 12/09/18 03:56 Labs: Abnormal Lab Results 12/09/18 12/09/18 12/08/18 03:56 03:56 03:51 WBC RBC 3.21 L Hgb 9.5 L Hct 29.8 L Gran % 79.8 H Lymph % (Auto) 8.5 L Gran # Lymph # (Auto) 0.6 L Seg Neutrophils % Lymphocytes % Chloride 114 H Carbon Dioxide 19 L 10 L* Anion Gap BUN 46 H 55 H Creatinine 2.5 H 2.9 H Glucose 110 H Uric Acid 9.1 H 10.0 H Calcium 7.6 L 7.8 L Magnesium 1.1 L Alkaline Phosphatase Lactate Dehydrogenase 274 H NT-Pro-B Natriuret Pep Albumin 2.5 L 2.6 L Globulin 3.8 H Albumin/Globulin Ratio 0.7 L 0.7 L Triglycerides 151 H Urine Protein Urine Occult Blood Ur Leukocyte Esterase Urine RBC Urine WBC Ur Squamous Epith Cells Amorphous Crystals Urine Bacteria Hyaline Casts 12/08/18 12/07/18 12/07/18 03:51 14:55 11:32 WBC RBC 3.52 L Hgb 10.5 L Hct 32.7 L Gran % Lymph % (Auto) 13.1 L Gran # Lymph # (Auto) 1.2 L Seg Neutrophils % Lymphocytes % Chloride Carbon Dioxide Anion Gap BUN Creatinine Glucose Uric Acid Calcium Magnesium Alkaline Phosphatase Lactate Dehydrogenase NT-Pro-B Natriuret Pep Albumin Globulin Albumin/Globulin Ratio Triglycerides Urine Protein 100 A 100 A Urine Occult Blood 2+ (moderate) A 0.2 A Ur Leukocyte Esterase 3+ (large) A 500 A Urine RBC 6 H > 182 H Urine WBC > 182 H > 182 H Ur Squamous Epith Cells 16 H Amorphous Crystals Mod A Urine Bacteria Few A Hyaline Casts 28 H 12/07/18 12/07/18 12/07/18 10:50 10:50 10:50 WBC RBC Hgb Hct Gran % Lymph % (Auto) Gran # Lymph # (Auto) Seg Neutrophils % 83 H Lymphocytes % 5 L Chloride 111 H Carbon Dioxide 12 L Anion Gap 17.0 H BUN 54 H Creatinine 3.0 H Glucose 121 H Uric Acid Calcium 8.4 L Magnesium Alkaline Phosphatase 126 H Lactate Dehydrogenase NT-Pro-B Natriuret Pep 7673.0 H Albumin Globulin 4.4 H Albumin/Globulin Ratio 0.7 L Triglycerides Urine Protein Urine Occult Blood Ur Leukocyte Esterase Urine RBC Urine WBC Ur Squamous Epith Cells Amorphous Crystals Urine Bacteria Hyaline Casts 12/07/18 10:50 WBC 12.5 H RBC Hgb Hct Gran % 79.8 H Lymph % (Auto) 12.0 L Gran # 10.0 H Lymph # (Auto) Seg Neutrophils % Lymphocytes % Chloride Carbon Dioxide Anion Gap BUN Creatinine Glucose Uric Acid Calcium Magnesium Alkaline Phosphatase Lactate Dehydrogenase NT-Pro-B Natriuret Pep Albumin Globulin Albumin/Globulin Ratio Triglycerides Urine Protein Urine Occult Blood Ur Leukocyte Esterase Urine RBC Urine WBC Ur Squamous Epith Cells Amorphous Crystals Urine Bacteria Hyaline Casts Meds: Medications Albuterol/Ipratropium (Duoneb) 3 ml NEB Q4HP PRN PRN Reason: Shortness Of Breath Ceftriaxone Sodium (Rocephin) 1 gm IV DAILY [facility] Last Admin: 12/08/18 09:16 Dose: 1 gm Documented by: Diphenhydramine HCl (Benadryl) 25 mg PO HSP PRN PRN Reason: Insomnia Last Admin: 12/08/18 20:26 Dose: 25 mg Documented by: Enoxaparin Sodium (Lovenox) 60 mg SQ DAILY [facility] Last Admin: 12/08/18 09:16 Dose: 60 mg Documented by: Famotidine (Pepcid) 20 mg PO [facility] Last Admin: 12/08/18 20:21 Dose: 20 mg Documented by: Magnesium Sulfate (Magnesium Sulfate) 2 gm in 50 mls @ 50 mls/hr IV ONCE ONE Stop: 12/09/18 08:56 Metoprolol Tartrate (Lopressor) 12.5 mg PO BID [facility] Last Admin: 12/08/18 20:21 Dose: 12.5 mg Documented by: Metoprolol Tartrate (Lopressor) 5 mg IV Q2HP PRN PRN Reason: Tachyarrhythmia HR>110 Ondansetron HCl (Zofran) 4 mg IV Q4HP PRN PRN Reason: Nausea And Vomiting Prochlorperazine (Compazine) 10 mg IV Q6HP PRN PRN Reason: Nausea And Vomiting Promethazine HCl (Phenergan) 0 mg PO Q6HP PRN PRN Reason: Nausea And Vomiting Senna (Senokot) 2 tab PO HSP PRN PRN Reason: Constipation Sodium Bicarbonate (Sodium Bicarbonate) 1,300 mg PO QID [facility] Last Admin: 12/08/18 20:21 Dose: 1,300 mg Documented by: Sodium Chloride (Saline Flush) 10 ml IV Q8 [facility] Last Admin: 12/09/18 05:42 Dose: 10 ml Documented by: Warfarin Sodium (Coumadin Per Pharmacy) 1 order PO [facility] Medical - PN: A/P - Time Spent With Patient Total time spent is greater than 50% in coordination of care (as documented) at patient's floor/unit and/or counseling patient: - Narrative A/P Narrative: A/P *AFib rvr(found a week ago): -HR stable, on metoprolol -started on anticoagulation due to high CHADSVASC Score *?NATHALIA (unknown baseline) on CKD IIIb-IV: -renal u/s with atrophy, nonobstructing stones, mild left hydro -get CT abdomen and pelvis, without contrast -renal function improving *Met acidosis, nongap: hyperchloremic, ?from diarrhea vs RTA (potassium ok however) vs -improving with bicarb, appreciate nephrology input. *hypomag: -replace *UTI: -on rocephin. *Severe systolic heart failure, and diastoilc heart failure -on beta blockers, -NOE/ARB when renal function stable -outpatient cardiology follow up : *HTN/HLD -stble : *GERD -on pepcid *Anxiety: -stable *Diarrhea: -cdiff neg, -has ilostomy, start on banatrol DNR Xfer to med surg status Medical - PN: Qual - VTE Deep Vein Thrombosis/Pulmonary Embolism Present on Admission: No
[2018-12-09] MEDS: METOPROLOL TARTRATE 25 MG TABLET PO SCH ×2 (08:35→20:44)
[2018-12-09] MEDS: SODIUM BICARBONATE 650 MG TABLET PO SCH ×4 (08:35→20:44)
[2018-12-09] MEDS: ENOXAPARIN 60 MG/0.6 ML SYRINGE SQ SCH (08:35)
[2018-12-09] MEDS: cefTRIAXone 1 GM VIAL IV SCH (08:36)
[2018-12-09] MEDS ORDERED: IPRATROPIUM/ALBUTEROL 3 ML AMPUL.NEB NEB PRN (10:47)
[2018-12-09] MEDS ORDERED: ONDANSETRON 4 MG/2 ML VIAL IV PRN (10:47)
[2018-12-09] MEDS ORDERED: PROMETHAZINE 25 MG TABLET PO PRN (10:47)
[2018-12-09] MEDS ORDERED: PROCHLORPERAZINE 10 MG/2 ML VIAL IV PRN (10:47)
[2018-12-09] MEDS ORDERED: METOPROLOL TARTRATE 5 MG/5 ML VIAL IV PRN (10:47)
[2018-12-09] MEDS ORDERED: ACETAMINOPHEN 325 MG TABLET PO PRN (11:13)
[2018-12-09] MEDS ORDERED: WARFARIN 5 MG TABLET PO ONE (14:00)
--- NOTE | 2018-12-09 14:10 | Cat Scan Report ---
CLINICAL INFORMATION: Mild left hydronephrosis on ultrasound evaluate for obstructing stone. COMPARISON: Chest, abdomen and pelvic CT 12/11/2007. Renal ultrasound 12/07/2018 TECHNIQUE: 0.625 mm helical slices were obtained from the mid heart through the subtrochanteric regions. Following reconstruction, 2.5 mm sagittal, coronal and axial reformatted images were processed and reviewed at bone and soft tissue windows.The exam was performed using radiation dose optimization techniques including, but not limited to, automated exposure control, adjustment of the mA and/or kV according to patient size and use of iterative reconstruction technique. FINDINGS: Lung bases show small bilateral pleural effusions and subsegmental atelectasis in both posterior lower lobes. The heart is mildly enlarged with moderate calcification in the mitral annulus and bowel. A 2-3 tiny calcifications in the papillary muscles of the left ankle. There is also moderate calcific atherosclerotic plaque the visualized coronary arteries. Images through the abdomen show the noncontrasted liver to be normal in size and configuration without focal lesion. The gallbladder is surgically absent. There is an 8 mm stone in the ampullary region of the common bile duct resulting in moderate biliary dilatation. The common bile duct is 12 mm. The noncontrasted pancreas, adrenal glands, spleen are normal. There is an elongated (25 x 9 mm) stone in the left UPJ/proximal ureter resulting in moderate left hydronephrosis. There are multiple nonobstructing stones, greater than 10 in number, within the calyces and pelvis of the left kidney which range up to 11 mm. In the right kidney, a 18 mm simple cyst in the anterior cortex mid region is unchanged. There is a 11 mm well-circumscribed hyperdense cyst inferior pole the right kidney which is new from the 2008 CT. A more vague 18 mm isointense cyst in the lateral cortex mid right kidney is also new. The aorta contains very heavy calcific plaque in the upper limits of normal in diameter 2.6 cm. Uterus is retroflexed and normal postmenopausal size is 7.4 x 3.5 cm. The region of both ovaries is normal. Urinary bladder is unremarkable. Total colectomy changes with ileostomy in the right lower quadrant. Small bowel and stomach are grossly normal. There is marked laxity in the anterior abdominal wall musculature allowing protrusion of the abdominal contents including small bowel loops and a portion of the stomach. No mario hernia. Bone windows show no osseous abnormality IMPRESSION: 1. Large (25 x 8 mm) stone in the proximal left ureter resulting in moderate left hydronephrosis. Multiple (greater than 10). Nonobstructing stones in the pelvis calyces and the left kidney range up to 11 mm. 2. 8 mm stone in the distal common bile duct at the ampulla resulting in moderate biliary dilatation. This is new from the previous study. Please correlate with obstructive LFT pattern 3. Scattered cysts in the mid/inferior right kidney ranging up to 18 mm mid right kidney. 4. Post colectomy changes with ileostomy right lower quadrant. No bowel abnormality 5. Small bowel pleural effusions with minor atelectasis both posterior lower lobes Interpreted and Authenticated by: Johan Mcclain 12/09/18
[2018-12-09] MEDS: PIPERACILLIN SODIUM/TAZOBACTAM 2.25 GM in DEXTROSE 5% IN WATER 50 ML IV SCH ×2 (16:25→21:49)
--- NOTE | 2018-12-09 17:19 | Internal Medicine Consult Note ---
Medical - CN: HPI - Data of Consult Patient: new to practice Consult date: 12/09/18 Requesting physician: Yordan Chavez Primary Care Provider: Oliverio Yanez Family Provider: Dori Walker - Consult Narrative Reason for consult: choledocholithiasis History of present illness: Ms. Domingo is a 83 year old F admitted for weakness with new onset atrial fibrillation and UTI with dehydration who was incidentally discovered to have choledocholithiasis on CT. She underwent cholecystectomy in the remote past, but is not sure why. She believes she underwent cholecystectomy at the same time as ileostomy was performed for ischemic bowel, perhaps 10 years ago. She denies any abdominal pain, intrascapular pain, jaundice, or dark urine. Her leukocytosis crabtree s improved since starting antibiotic therapy. She was recently changed to Zosyn in light of her choledocholithiasis. CC: Nahid Dee All systems: reviewed and no additional remarkable complaints except as stated - Gastrointestinal Gastrointestinal: Present: as per HPI. Absent: abdominal pain, bloating, cramping, dyspepsia Medical - CN: [facility] Medical history: CHF, COPD, chronic kidney disease stage 3-4, eczema, hyperlipidemia, remote history of ischemic bowel Surgical history: Ileostomy for ischemic bowel about 10 years ago, cholecystectomy, ankle surgery Family history: reviewed and not pertinent Social history: Lives alone. Has a daughter in [place] who is a nursing coordinator. Former smoker, no ETOH Functional capacity: uses cane/walker Smoking status: Former smoker Medical - CN: Meds Home Medications Medication Instructions Recorded Confirmed Type Aspirin [Casa Chewable Aspirin] 81 mg PO DAILY 03/01/16 12/07/18 History Atorvastatin [Lipitor] 80 mg PO HS 03/01/16 12/07/18 History Metoprolol Succinate [Toprol Xl] 25 mg PO DAILY 03/01/16 12/07/18 History Omeprazole [Prilosec] 20 mg PO DAILY 03/01/16 12/07/18 History Furosemide [Lasix] 40 mg PO DAILYP PRN 12/07/18 12/07/18 History Magnesium Oxide [Magnesium] 400 mg PO HS 12/07/18 12/07/18 History Potassium Chloride [Kdur] 20 meq PO DAILY 12/07/18 12/07/18 History Allergies Allergy/AdvReac Type Severity Reaction Status Date / Time Zolpidem AdvReac Mild Vomiting Verified 12/08/18 06:59 Medical - CN: Exam - Constitutional Vitals: Temp Pulse Resp BP Pulse Ox 98.6 F 74 18 93/39 95 12/09/18 12:00 12/09/18 12:00 12/09/18 12:00 12/09/18 12:00 12/09/18 12:00 General appearance: average body habitus, no acute distress - Head Head exam: Present: atraumatic, normocephalic Additional comments: Minimal hair - Eye Eye exam: Present: normal appearance - Neck Neck exam: Present: normal inspection. Absent: lymphadenopathy, thyromegaly - Respiratory Respiratory exam: Present: normal respiratory exam, CTAB - Cardiovascular Cardiovascular exam: Present: normal rate and rhythm, RRR. Absent: systolic murmur - GI/Abdominal GI/Abdominal exam: Present: normal bowel sounds, soft. Absent: hernia, mass, organomegaly Additional comments: ileostomy in RLQ - Extremities Exam Extremities exam: Present: Foot pink and warm - Skin Skin exam: Present: dry, erythema Medical - CN: Result - Labs CBC & Chem 7: 12/09/18 03:56 12/09/18 03:56 Labs: Short CBC 12/09/18 Range/Units 03:56 WBC 7.0 (4.5-11.0) K/mcL Hgb 9.5 L (12.0-15.0) g/dL Hct 29.8 L (36.0-48.0) % Plt Count 214 (140-440) K/mcL BMP 12/09/18 03:56 Sodium 141 Potassium 3.6 Chloride 107 Carbon Dioxide 19 L BUN 46 H Creatinine 2.5 H Glucose 110 H Calcium 7.6 L Liver Function 12/09/18 Range/Units 03:56 Total Bilirubin < 0.2 (0.0-1.0) mg/dL Direct Bilirubin < 0.2 (0.0-0.3) mg/dL GGT 32 (5-36) U/L AST 14 (0-37) U/l ALT 10 (0-40) U/l Alkaline Phosphatase 99 (39-117) U/L Albumin 2.5 L (3.2-5.2) gm/dL Medical - CN: A/P (1) Choledocholithiasis Status: Acute Assessment and plan: Discussed case with Dr. Dwyer. Will arrange for ERCP tomorrow. Discussed risks of pancreatitis, bleeding (pt on coumadin), perforation, infection. Written information, including indication for procedure and risks of procedure, was provided as the patient wanted to discuss the procedure with her daughter.
[2018-12-09] MEDS ORDERED: FAMOTIDINE 20 MG TABLET PO SCH (21:00)
[2018-12-09] MEDS ORDERED: SENNOSIDES 1 TABLET PO PRN (21:00)
[2018-12-09] MEDS ORDERED: diphenhydrAMINE 25 MG CAPSULE PO PRN (21:00)
[2018-12-10 05:31] LABS: Basophils # (Auto) 0 K/mcL (0.0-0.3); Basophils % (Auto) 0.1 % (0.0-2.0); Eosinophils # (Auto) 0.2 K/mcL (0.0-0.7); Eosinophils % (Auto) 3.7 % (0.0-7.0); Granulocytes % (Auto) 74.4 % (38.0-78.0); Hematocrit 28.1 % (36.0-48.0); Lymphocytes # (Auto) 0.8 K/mcL (1.5-4.8); Lymphocytes % (Auto) 11.6 % (15.5-49.0); Mean Cell Volume 92.4 fL (80.0-100.0); Mean Corpuscular HGB Conc 32.2 g/dL (31.0-36.0); Mean Platelet Volume 9.3 fL (7.4-10.4); Monocytes # (Auto) 0.7 K/mcL (0.1-0.9); Monocytes % (Auto) 10.2 % (1.0-12.0); Platelet Count 194 K/mcL (140-440); RBC 3.04 M/mcL (4.00-5.20); Red Cell Distribution Width 13.8 % (11.5-14.5); WBC 6.6 K/mcL (4.5-11.0)
[2018-12-10] MEDS: 0.9 % SODIUM CHLORIDE 10 ML SYRINGE IV SCH ×3 (05:44→21:34)
[2018-12-10] MEDS: PIPERACILLIN SODIUM/TAZOBACTAM 2.25 GM in DEXTROSE 5% IN WATER 50 ML IV SCH ×3 (05:44→21:34)
[2018-12-10 05:46] LABS: ALT/SGPT 10 U/l (0-40); AST/SGOT 13 U/l (0-37); Albumin 2.4 gm/dL (3.2-5.2); Albumin/Globulin Ratio 0.8 (1.0-2.3); Alkaline Phosphatase 90 U/L (39-117); Bilirubin,Direct < 0.2 mg/dL (0.0-0.3); Bilirubin,Total 0.2 mg/dL (0.0-1.0); Blood Urea Nitrogen 44 mg/dl (8-23); Calcium 7.5 mg/dl (8.6-10.4); Carbon Dioxide 23 mmol/L (22-30); Chloride 108 mmol/L (96-108); Gamma Glutamyl Transpeptidase 32 U/L (5-36); Globulin 3.2 gm/dL (2.2-3.7); Glomerular Filtration Rate 15; Glucose 95 mg/dL (70-105); Lactate Dehydrogenase 128 U/L (94-250); Magnesium 1.9 mg/dL (1.6-2.5); Phosphorous 2.8 mg/dL (2.7-4.5); Potassium 3.8 mmol/L (3.3-5.1); Sodium 143 mmol/L (133-145); Triglycerides 113 mg/dl (<150); Uric Acid 8.9 mg/dL (2.5-8.0)
[2018-12-10 05:55] LABS: INR 1.2 (0.9-1.1); Prothrombin Time 15.5 sec (11.9-14.5)
--- NOTE | 2018-12-10 06:02 | Nephrology Progress Note ---
Subjective Patient information: Note initiated : 12/10/18 at 5:59 am Patient: Jessie Domingo 83 y/o F admitted on 12/07/18 for Shortness of breath. Chief Complaint: Weakness. Pertinent ROS: Weakness. No edema. Urinary incontinence. Objective - Vital Signs Vital signs: Vital Signs Temp Pulse Pulse Resp BP BP Pulse Ox 12/10/18 03:20 98.1 F 66 20 108/60 92 12/09/18 23:00 98.4 F 74 20 110/50 94 12/09/18 18:40 98.3 F 74 20 114/55 95 12/09/18 16:00 98.5 F 77 18 129/63 97 12/09/18 12:00 98.6 F 74 18 93/39 95 12/09/18 08:01 98.1 F 78 19 107/95 96 12/09/18 08:00 96 12/09/18 07:53 71 24 H 114/76 100 12/09/18 07:11 64 16 110/79 97 Intake and Output 12/09/18 12/09/18 12/10/18 13:59 21:59 05:59 Intake Total 270 170 400 Output Total 250 850 325 Balance 20 -680 75 Intake: IV 50 50 50 Zosyn 2.25 gm In Dextrose 5% in 50 50 Water 50 ml @ 100 mls/hr IV Q8H MARCELA Rx#:[id number] Oral 220 120 350 Output: Void Amount 250 225 200 Stool 625 125 Other: Meal Lunch Dinner Percent of Meal Consumed 100% 75% Feeding Ability Assist with Tray Set Up Assist with Tray Set Up Urine Appearance Cloudy Clear Clear Urine Color Straw Dark Yellow Bright Yellow Stool Color Brown Brown Brown Yellow Stool Consistency Watery Watery Watery Weight 136 lb Patient Weight 12/10/18 05:59 Weight 136 lb Intake & Output: Intake & Output 12/09/18 12/09/18 12/10/18 13:59 21:59 05:59 Intake Total 270 170 400 Output Total 250 850 325 Balance 20 -680 75 Weight 136 lb Intake: IV 50 50 50 Zosyn 2.25 gm In Dextrose 5% in 50 50 Water 50 ml @ 100 mls/hr IV Q8H MARCELA Rx#:[id number] Oral 220 120 350 Output: Void Amount 250 225 200 Stool 625 125 Other: Meal Lunch Dinner Percent of Meal Consumed 100% 75% Feeding Ability Assist with Tray Set Up Assist with Tray Set Up Urine Appearance Cloudy Clear Clear Urine Color Straw Dark Yellow Bright Yellow Stool Color Brown Brown Brown Yellow Stool Consistency Watery Watery Watery - General Appearance General appearance: fatigue EENT: mucous membranes moist Neck: supple Respiratory: clear Cardiology: no edema Gastrointestinal: no tenderness Integumentary: warm and dry Neurologic: no focal deficit, alert and oriented x3 Musculoskeletal: no deformities Psychiatric: mood/affect appropriate, cooperative - Lab 12/10/18 03:58 12/10/18 03:58 Most recent lab results Calcium 7.5 mg/dl (8.6-10.4) L 12/10/18 03:58 Phosphorus 2.8 mg/dL (2.7-4.5) 12/10/18 03:58 Magnesium 1.9 mg/dL (1.6-2.5) 12/10/18 03:58 Assessment and Plan (1) Acute on chronic renal failure Jessie Domingo is an 83-year-old female with suspected chronic kidney disease sent to ED for acute kidney injury. Her serum creatinine was 1.4 in 2016. 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 Her major complaint is weakness. She was sent to ED after blood work was abnormal. In ED work up was significant for suspected urinary tract infection. Acute kidney injury on suspected chronic kidney disease stage 3-4 associated with NSAIDs, present on arrival. Work up: Renal US on 12/07/18: Mildly atrophic and hyperechoic kidneys compatible with advanced age and medical renal disease. Scattered small nonobstructing stones in the calyces of both kidneys ranging up to 8 mm. Mild left hydronephrosis suggest the possibility of an unidentified left ureteral stone. Consider: CT urogram. 1.8 cm simple cyst in the left kidney - stable. Progress: Urine output: Incontinent, 675 ml reported in the past 24 hours. Serum creatinine increased from 2.5 to 2.8 in the past 24 hours. Metabolic acidosis, resolved. No fluid overload. No uremic symptoms. Plan: I informed her son who is on hemodialysis in [place] this morning. Follow up with nephrology after discharge. Status: Acute Priority: Medium Qualifiers: Acute renal failure type: unspecified Chronic kidney disease stage: stage 3 (moderate) Qualified Code(s): N17.9 - Acute kidney failure, unspecified; N18.3 - Chronic kidney disease, stage 3 (moderate)
--- NOTE | 2018-12-10 07:42 | History and Physical Report ---
DATE OF ADMISSION: 12/07/2018 REQUESTING PHYSICIAN: Yordan Chavez M.D. CHIEF COMPLAINT: Left renal stone. HISTORY OF PRESENT ILLNESS: The patient is an 83-year-old lady who was admitted to the hospital on 12/07/2018 for atrial fibrillation. She also was noted to have an increase in creatinine and Nephrology did see her. They did ultrasound which did show left slight hydronephrosis. A CT scan was then obtained which showed a 2.5 x 8 mm stone in the UPJ. There were multiple stones in the kidney and I have been asked to evaluate her. She states that she has never had stones before. She did have some pain in the left side but also on the right. It should be noted that she has a common bile duct stone and is scheduled for an ERCP later in the day. She presents now for evaluation. PAST MEDICAL HISTORY: Congestive heart failure, chronic renal disease, COPD, anxiety, hypertension, eczema. PAST SURGICAL HISTORY: An ostomy for ischemic bowel and an ankle surgery. FAMILY HISTORY: Heart disease. SOCIAL HISTORY: Former smoker, does not use alcohol, lives by herself. MEDICATIONS: Upon admission: 1. Aspirin. 2. Lipitor. 3. Metoprolol. 4. Omeprazole. 5. Lasix. 6. Magnesium. 7. K-Dur. ALLERGIES: ZOLPIDEM. REVIEW OF SYSTEMS: Heart: Positive atrial fibrillation. She is starting anticoagulation. Respiratory: Denies any coughing. Urinary: Positive incontinence, renal stones. Psychological: No depression or mood swings. The rest of a 12-point review of systems is negative. PHYSICAL EXAMINATION: GENERAL: This is a very pleasant lady in no apparent distress. HEENT: Atraumatic, normocephalic. Extraocular movements are intact. Pupils equal, reactive to light and accommodation. NECK: Supple. Trachea is midline. HEART: Irregular. LUNGS: Pulmonary decreased sounds in the bases. ABDOMEN: Soft but no CVA tenderness; ostomy in place. EXTREMITIES: Without clubbing, cyanosis or edema. NEUROLOGIC: Alert and oriented x3. Cranial nerves II-XII grossly intact. IMPRESSION: Patient with a left renal stone which is causing an obstruction. PLAN: With all her other medical problems I would offer placing a stent here and stabilizing her creatinine. In the future, we may need to treat the stone, but I would consider doing a renal scan to see what the function of this kidney is. Based on its parenchymal appearance, it may not have much function and has multiple stones. I have discussed this with the patient and she understands. We will plan to follow up in surgery. GABRIEL:jak Job ID: [id number] Doc ID: [id number] Fco Wiseman MD
[2018-12-10] MEDS: METOPROLOL TARTRATE 25 MG TABLET PO SCH ×2 (08:14→20:49)
[2018-12-10] MEDS ORDERED: PROPOFOL 200 MG/20 ML VIAL IV ONE ×3 (08:23→13:22)
[2018-12-10] MEDS ORDERED: ENOXAPARIN 60 MG/0.6 ML SYRINGE SQ SCH (09:00)
[2018-12-10] MEDS ORDERED: cefTRIAXone 1 GM VIAL IV SCH (09:00)
--- NOTE | 2018-12-10 10:49 | Internal Med Progress Note ---
Medical - PN: Subj Patient information: Note initiated : 12/10/18 at 10:45 am Service Date, if different from initiated Date: [] Patient: Jessie Domingo 83 y/o F admitted on 12/07/18 for Shortness of breath. Chief Complaint: [] Interval history: Ms. Domingo is a 83 year old F Presents to the ED with weakness and new A. fib. She was seen in the pulmonary clinic last week and an outpatient labs and EKG were reviewed today she is found to have elevated BUN/creatinine and A. fib. Patient has not seen if primary care provider since she got out of the hospital at [facility] in 2016 Patient's has some weakness but not particularly worse than usual. She does have some shortness of breath but she said that for 3 or 4 years. She did have some nausea and retching about a week or so ago. Denies any palpitations or tachycardiaor, she says occasionally she will get a very sharp right-sided chest pain lasts for a split second and then goes away. Denies any leg swelling. She says she used to long time ago but has not had any lately. 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 Old records show a nuclear stress test EF of 40% 2015 an echo around that time showed diastolic grade 3. Follow-up echo in May showed an EF over 50% and grade 2 diastolic dysfunction. Pulmonary records show creatinine 3.6 she is currently 3.0. She had a white blood cell count of 13 at [facility] and urine that was concerning for urinary tract infection. TSH is within normal limits on pulmonary labs and troponin is negative. Chest x-ray in the ED unremarkable. She was in A. fib RVR with rate of 140 and given oral AV den katia with rate around 100. Urinalysis although 10 with squamous is elevated leukocyte and WBCs as well as hyaline casts, repeat analysis pending. Chest x-ray with cardiomegaly but no edema. 12/08 Says she feels little bit better but still weak. Having diarrhea overnight. No other overnight events. Bicarb down, renal function stable. 12/09 Patient seen examined, no acute issues, HR stable, bicarb up to 19, renal function improving, creat is 2.5 Patient feels weak, notes some pain in both her lower feet Cdiff is neg, start on banatrol Echo shows moderate to severely reduced lvef, pt on beta blockers, 12/10 Pt seen examined no acute issues pt CT done yesterday, noted to have moderate hydronephrosis, as well as a 8mm stone in the CBD Patient was placed on zosyn GI and urology consulted, plan for stent placement and ERCP today Pertinent ROS: Denies headache, dizziness Denies chest pain, palpitations Denies cough or shortness of breath Denies abdominal pain, nausea or vomiting. - Constitutional Vitals: Vital Signs Temp Pulse Resp BP Pulse Ox 98.2 F 66 24 H 107/42 93 12/10/18 06:29 12/10/18 03:20 12/10/18 06:29 12/10/18 06:29 12/10/18 06:29 Period Temp Pulse Resp BP Sys/Davies Pulse Ox Last 24 Hr 98.1 F-98.6 F 66-77 18-24 93-129/39-63 92-97 Intake and Output 12/09/18 12/10/18 12/10/18 21:59 05:59 13:59 Intake Total 170 400 50 Output Total 850 325 200 Balance -680 75 -150 Weight 136 lb Intake & Output: Intake & Output 12/09/18 12/10/18 12/10/18 21:59 05:59 13:59 Intake Total 170 400 50 Output Total 850 325 200 Balance -680 75 -150 Weight 136 lb Intake: IV 50 50 50 Zosyn 2.25 gm In Dextrose 5% in 50 50 50 Water 50 ml @ 100 mls/hr IV Q8H [facility] Rx#:[id number] Oral 120 350 Output: Void Amount 225 200 200 Stool 625 125 Other: Meal Dinner Percent of Meal Consumed 75% Feeding Ability Assist with Tray Set Up Urine Appearance Clear Clear Clear Urine Color Dark Yellow Bright Yellow Pale Urine Odor Normal Stool Color Brown Brown Stool Consistency Watery Watery Exam: Constitutional; Afebrile, cooperative, alert, not in distress. Respiratory system: Air Entry equal on both sides, No crackles or wheezing, no rhonchi. CVS- Rate rhythm regular, S1,S2 heard, no gallop, no rub. 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 Medical - PN: Obj Da - Labs CBC & Chem 7: 12/10/18 03:58 12/10/18 03:58 Labs: Abnormal Lab Results 12/10/18 12/10/18 12/10/18 03:58 03:58 03:58 WBC RBC 3.04 L Hgb 9.0 L Hct 28.1 L Gran % Lymph % (Auto) 11.6 L Gran # Lymph # (Auto) 0.8 L Seg Neutrophils % Lymphocytes % PT 15.5 H INR 1.2 H Chloride Carbon Dioxide Anion Gap BUN 44 H Creatinine 2.8 H Glucose Uric Acid 8.9 H Calcium 7.5 L Magnesium Alkaline Phosphatase Lactate Dehydrogenase NT-Pro-B Natriuret Pep Total Protein 5.6 L Albumin 2.4 L Globulin Albumin/Globulin Ratio 0.8 L Triglycerides Urine Protein Urine Occult Blood Ur Leukocyte Esterase Urine RBC Urine WBC Ur Squamous Epith Cells Amorphous Crystals Urine Bacteria Hyaline Casts 12/09/18 12/09/18 12/08/18 03:56 03:56 03:51 WBC RBC 3.21 L Hgb 9.5 L Hct 29.8 L Gran % 79.8 H Lymph % (Auto) 8.5 L Gran # Lymph # (Auto) 0.6 L Seg Neutrophils % Lymphocytes % PT INR Chloride 114 H Carbon Dioxide 19 L 10 L* Anion Gap BUN 46 H 55 H Creatinine 2.5 H 2.9 H Glucose 110 H Uric Acid 9.1 H 10.0 H Calcium 7.6 L 7.8 L Magnesium 1.1 L Alkaline Phosphatase Lactate Dehydrogenase 274 H NT-Pro-B Natriuret Pep Total Protein Albumin 2.5 L 2.6 L Globulin 3.8 H Albumin/Globulin Ratio 0.7 L 0.7 L Triglycerides 151 H Urine Protein Urine Occult Blood Ur Leukocyte Esterase Urine RBC Urine WBC Ur Squamous Epith Cells Amorphous Crystals Urine Bacteria Hyaline Casts 12/08/18 12/07/18 12/07/18 03:51 14:55 11:32 WBC RBC 3.52 L Hgb 10.5 L Hct 32.7 L Gran % Lymph % (Auto) 13.1 L Gran # Lymph # (Auto) 1.2 L Seg Neutrophils % Lymphocytes % PT INR Chloride Carbon Dioxide Anion Gap BUN Creatinine Glucose Uric Acid Calcium Magnesium Alkaline Phosphatase Lactate Dehydrogenase NT-Pro-B Natriuret Pep Total Protein Albumin Globulin Albumin/Globulin Ratio Triglycerides Urine Protein 100 A 100 A Urine Occult Blood 2+ (moderate) A 0.2 A Ur Leukocyte Esterase 3+ (large) A 500 A Urine RBC 6 H > 182 H Urine WBC > 182 H > 182 H Ur Squamous Epith Cells 16 H Amorphous Crystals Mod A Urine Bacteria Few A Hyaline Casts 28 H 12/07/18 12/07/18 12/07/18 10:50 10:50 10:50 WBC RBC Hgb Hct Gran % Lymph % (Auto) Gran # Lymph # (Auto) Seg Neutrophils % 83 H Lymphocytes % 5 L PT INR Chloride 111 H Carbon Dioxide 12 L Anion Gap 17.0 H BUN 54 H Creatinine 3.0 H Glucose 121 H Uric Acid Calcium 8.4 L Magnesium Alkaline Phosphatase 126 H Lactate Dehydrogenase NT-Pro-B Natriuret Pep 7673.0 H Total Protein Albumin Globulin 4.4 H Albumin/Globulin Ratio 0.7 L Triglycerides Urine Protein Urine Occult Blood Ur Leukocyte Esterase Urine RBC Urine WBC Ur Squamous Epith Cells Amorphous Crystals Urine Bacteria Hyaline Casts 12/07/18 10:50 WBC 12.5 H RBC Hgb Hct Gran % 79.8 H Lymph % (Auto) 12.0 L Gran # 10.0 H Lymph # (Auto) Seg Neutrophils % Lymphocytes % PT INR Chloride Carbon Dioxide Anion Gap BUN Creatinine Glucose Uric Acid Calcium Magnesium Alkaline Phosphatase Lactate Dehydrogenase NT-Pro-B Natriuret Pep Total Protein Albumin Globulin Albumin/Globulin Ratio Triglycerides Urine Protein Urine Occult Blood Ur Leukocyte Esterase Urine RBC Urine WBC Ur Squamous Epith Cells Amorphous Crystals Urine Bacteria Hyaline Casts Meds: Medications Acetaminophen (Tylenol) 650 mg PO Q4HP PRN PRN Reason: PAIN/FEVER > 101 Last Admin: 12/09/18 11:26 Dose: 650 mg Documented by: Albuterol/Ipratropium (Duoneb) 3 ml NEB Q4HP PRN PRN Reason: Shortness Of Breath Diphenhydramine HCl (Benadryl) 25 mg PO HSP PRN PRN Reason: Insomnia Enoxaparin Sodium (Lovenox) 60 mg SQ DAILY [facility] Last Admin: 12/10/18 08:15 Dose: 60 mg Documented by: Famotidine (Pepcid) 20 mg PO [facility] Last Admin: 12/09/18 20:43 Dose: 20 mg Documented by: Piperacillin Sod/Tazobactam (Sod 2.25 gm/ Dextrose) 50 mls @ 100 mls/hr IV Q8H [facility]; Protocol Last Infusion: 12/10/18 06:45 Dose: Infused Documented by: Metoprolol Tartrate (Lopressor) 5 mg IV Q2HP PRN PRN Reason: Tachyarrhythmia HR>110 Metoprolol Tartrate (Lopressor) 12.5 mg PO BID [facility] Last Admin: 12/10/18 08:14 Dose: 12.5 mg Documented by: Midazolam HCl (Versed) 0 mg IV ONCE ONE Stop: 12/10/18 15:01 Ondansetron HCl (Zofran) 4 mg IV Q4HP PRN PRN Reason: Nausea And Vomiting Prochlorperazine (Compazine) 10 mg IV Q6HP PRN PRN Reason: Nausea And Vomiting Promethazine HCl (Phenergan) 0 mg PO Q6HP PRN PRN Reason: Nausea And Vomiting Senna (Senokot) 2 tab PO HSP PRN PRN Reason: Constipation Sodium Chloride (Saline Flush) 10 ml IV Q8 [facility] Last Admin: 12/10/18 05:44 Dose: 10 ml Documented by: Warfarin Sodium (Coumadin Per Pharmacy) 1 order PO [facility] [place] Medical - PN: A/P - Time Spent With Patient Total time spent is greater than 50% in coordination of care (as documented) at patient's floor/unit and/or counseling patient: - Narrative A/P Narrative: A/P *AFib rvr(found a week ago): -HR stable, on metoprolol -started on anticoagulation due to high CHADSVASC Score (held now for procedure today) pt on lovenox and coumadin. 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 *Met acidosis, nongap: hyperchloremic, ?from diarrhea vs RTA (potassium ok however) vs -improving with bicarb, -bicarb held by nephrology Choledolithiasis -ERCP planned today by Dr Dwyer -LFT stable. *hypomag: -replace *UTI: -on zosyn for GI, should cover any potential UTI *Severe systolic heart failure, and diastoilc heart failure -on beta blockers, -NOE/ARB when renal function stable -outpatient cardiology follow up : *HTN/HLD -stble : *GERD -on pepcid *Anxiety: -stable *Diarrhea: -cdiff neg, -has ilostomy, start on banatrol DNR Medical - PN: Qual - VTE Deep Vein Thrombosis/Pulmonary Embolism Present on Admission: No
[2018-12-10] MEDS ORDERED: fentaNYL 100 MCG/2 ML VIAL IV ONE (12:10)
[2018-12-10] MEDS ORDERED: GLYCOPYRROLATE 0.2 MG/ML VIAL IV ONE (12:10)
[2018-12-10] MEDS ORDERED: PHENYLEPHRINE 10 MG/ML VIAL IV ONE (12:10)
[2018-12-10] MEDS ORDERED: ONDANSETRON 4 MG/2 ML VIAL IV ONE (12:10)
[2018-12-10] MEDS ORDERED: KETAMINE 100 MG/ML ML IV ONE (12:10)
[2018-12-10] MEDS ORDERED: LIDOCAINE HCL/PF 100 MG/5 ML SYRINGE IV ONE (12:10)
[2018-12-10] MEDS ORDERED: ONDANSETRON 4 MG/2 ML VIAL IV PRN ×3 (12:28→13:22)
[2018-12-10] MEDS ORDERED: fentaNYL 100 MCG/2 ML VIAL IV PRN ×2 (12:28→13:22)
[2018-12-10] MEDS ORDERED: IPRATROPIUM/ALBUTEROL 3 ML AMPUL.NEB NEB PRN ×3 (12:28→13:22)
[2018-12-10] MEDS ORDERED: MEPERIDINE 25 MG/ML SYRINGE IV PRN ×2 (12:28→13:22)
[2018-12-10] MEDS ORDERED: LACTATED RINGERS 1,000 ML IV SCH ×2 (12:30→13:22)
--- NOTE | 2018-12-10 12:33 | Brief Operative Note ---
Date of procedure: 12/10/18 Pre-op diagnosis: left renal stone Post-op diagnosis: same Procedure: cysto, stent Grafts/Implants: Yes (uretyeral stent) Anesthesia: GLMA Findings: see note Complications: none Surgeon: Fco Wiseman Specimens Removed/Pathology: none sent Condition: stable Disposition: PACU
[2018-12-10] MEDS ORDERED: IOHEXOL 300 10 ML VIAL IV ONE (12:56)
--- NOTE | 2018-12-10 12:58 | Operative Note ---
DATE OF OPERATION: 12/10/2018 PREOPERATIVE DIAGNOSIS: Left renal stone with obstruction. POSTOPERATIVE DIAGNOSIS: Left renal stone with obstruction. PROCEDURE: Cystoscopy, retrograde pyelogram, stent placement. SURGEON: Fco Wiseman MD INDICATION: The patient is an 83-year-old female who was admitted to the hospital for new onset atrial fibrillation. She did see Nephrology and a CT scan was obtained which did show obstruction of the left kidney. She had a 2.5 cm stone at the UPJ. She presents now for stent placement. PROCEDURE IN DETAIL: The patient was identified and consent was signed. She was given general anesthesia, placed in lithotomy position, prepped and draped in a standard fashion. Cystourethroscopy was performed which showed normal-appearing urethra. Orifices were in their normal position. No tumors or masses were seen in the bladder. Retrograde pyelogram was obtained which showed a large stone in the UPJ and slight hydronephrosis of the kidney. There were multiple stones throughout the left kidney. The decision was made to place a stent to allow further workup of her medical problems and therefore a 6 x 24 stent was placed using the Seldinger technique. No string was left attached. There was a good curl in the kidney and the bladder. The patient was then awoken and taken to the recovery room in a stable condition. [id number] Job ID: [id number] Doc ID: [id number] Fco Wiseman MD
[2018-12-10] MEDS ORDERED: PROMETHAZINE 25 MG TABLET PO PRN (13:22)
[2018-12-10] MEDS ORDERED: METOPROLOL TARTRATE 5 MG/5 ML VIAL IV PRN (13:22)
[2018-12-10] MEDS ORDERED: SENNOSIDES 1 TABLET PO PRN (13:22)
[2018-12-10] MEDS ORDERED: PROCHLORPERAZINE 10 MG/2 ML VIAL IV PRN (13:22)
[2018-12-10] MEDS ORDERED: ACETAMINOPHEN 325 MG TABLET PO PRN (13:22)
[2018-12-10] MEDS ORDERED: diphenhydrAMINE 25 MG CAPSULE PO PRN (13:22)
[2018-12-10] MEDS ORDERED: WARFARIN 5 MG TABLET PO ONE (14:00)
[2018-12-10] MEDS ORDERED: MIDAZOLAM 2 MG/2 ML VIAL IV ONE ×2 (15:00)
[2018-12-10] MEDS ORDERED: PROPOFOL 20 ML IV ONE (16:02)
[2018-12-10] MEDS ORDERED: MIDAZOLAM 2 MG/2 ML VIAL ONE (16:02)
[2018-12-10] MEDS ORDERED: IOHEXOL 300 10 ML VIAL IJ ONE (16:19)
[2018-12-10] MEDS ORDERED: FAMOTIDINE 20 MG TABLET PO SCH (21:00)
[2018-12-11] MEDS: PIPERACILLIN SODIUM/TAZOBACTAM 2.25 GM in DEXTROSE 5% IN WATER 50 ML IV SCH ×3 (05:49→22:24)
[2018-12-11] MEDS: 0.9 % SODIUM CHLORIDE 10 ML SYRINGE IV SCH ×3 (05:49→22:25)
[2018-12-11 06:36] LABS: Basophils # (Auto) 0 K/mcL (0.0-0.3); Basophils % (Auto) 0.3 % (0.0-2.0); Eosinophils # (Auto) 0.3 K/mcL (0.0-0.7); Eosinophils % (Auto) 4.1 % (0.0-7.0); Granulocytes % (Auto) 73.3 % (38.0-78.0); Hematocrit 28.5 % (36.0-48.0); Hemoglobin 8.9 g/dL (12.0-15.0); Lymphocytes # (Auto) 0.8 K/mcL (1.5-4.8); Lymphocytes % (Auto) 12.6 % (15.5-49.0); Mean Cell Volume 94.3 fL (80.0-100.0); Mean Corpuscular HGB Conc 31.4 g/dL (31.0-36.0); Mean Platelet Volume 9.4 fL (7.4-10.4); Monocytes # (Auto) 0.6 K/mcL (0.1-0.9); Monocytes % (Auto) 9.7 % (1.0-12.0); Platelet Count 183 K/mcL (140-440); RBC 3.02 M/mcL (4.00-5.20); Red Cell Distribution Width 13.9 % (11.5-14.5); WBC 6.6 K/mcL (4.5-11.0)
[2018-12-11 06:40] LABS: INR 1.2 (0.9-1.1); Prothrombin Time 15.2 sec (11.9-14.5)
[2018-12-11 06:57] LABS: ALT/SGPT 9 U/l (0-40); AST/SGOT 12 U/l (0-37); Albumin 2.2 gm/dL (3.2-5.2); Albumin/Globulin Ratio 0.6 (1.0-2.3); Alkaline Phosphatase 82 U/L (39-117); Bilirubin,Direct < 0.2 mg/dL (0.0-0.3); Bilirubin,Total 0.3 mg/dL (0.0-1.0); Blood Urea Nitrogen 40 mg/dl (8-23); Calcium 7.8 mg/dl (8.6-10.4); Carbon Dioxide 18 mmol/L (22-30); Chloride 109 mmol/L (96-108); Gamma Glutamyl Transpeptidase 33 U/L (5-36); Globulin 3.4 gm/dL (2.2-3.7); Glomerular Filtration Rate 17; Glucose 75 mg/dL (70-105); Lactate Dehydrogenase 195 U/L (94-250); Magnesium 1.8 mg/dL (1.6-2.5); Potassium 4.3 mmol/L (3.3-5.1); Sodium 142 mmol/L (133-145); Triglycerides 138 mg/dl (<150); Uric Acid 7.8 mg/dL (2.5-8.0)
--- NOTE | 2018-12-11 07:01 | Nephrology Progress Note ---
Subjective Patient information: Note initiated : 12/11/18 at 6:59 am Patient: Jessie Domingo 83 y/o F admitted on 12/07/18 for Shortness of breath. Chief Complaint: Weakness. Pertinent ROS: Weakness. Urinary incontinence. Objective - Vital Signs Vital signs: Vital Signs Temp Pulse Pulse Pulse Resp BP BP 12/11/18 03:45 98.0 F 61 20 93/49 12/10/18 23:20 98.0 F 61 20 125/54 12/10/18 20:00 98.5 F 64 16 126/56 12/10/18 17:47 66 16 114/50 12/10/18 17:22 61 16 121/51 12/10/18 17:08 97.2 F 78 16 117/50 12/10/18 16:45 67 16 107/64 12/10/18 16:35 98.0 F 64 14 110/61 12/10/18 16:30 67 14 110/59 12/10/18 16:25 59 L 12 100/59 12/10/18 16:20 64 14 108/60 12/10/18 16:15 67 12 104/62 12/10/18 16:10 68 12 108/60 12/10/18 16:05 73 12 127/62 12/10/18 16:00 98.0 F 64 18 125/63 12/10/18 15:28 134/58 12/10/18 14:30 139/63 12/10/18 14:00 99/50 12/10/18 13:45 112/51 12/10/18 13:30 117/51 12/10/18 13:15 97.6 F 20 122/60 12/10/18 13:05 97.1 F 71 16 136/56 12/10/18 12:55 98.1 F 71 19 124/49 12/10/18 12:50 72 20 131/87 12/10/18 12:45 76 17 131/87 12/10/18 12:40 98.3 F 80 19 120/51 12/10/18 12:38 98.3 F 75 15 118/50 12/10/18 10:53 98.9 F 76 19 107/49 Pulse Ox 12/11/18 03:45 94 12/10/18 23:20 94 12/10/18 20:00 91 12/10/18 17:47 92 12/10/18 17:22 95 12/10/18 17:08 94 12/10/18 16:45 99 12/10/18 16:35 97 12/10/18 16:30 91 12/10/18 16:25 91 12/10/18 16:20 97 12/10/18 16:15 92 12/10/18 16:10 94 12/10/18 16:05 100 12/10/18 16:00 96 12/10/18 15:28 94 12/10/18 14:30 94 12/10/18 14:00 93 12/10/18 13:45 90 12/10/18 13:30 90 12/10/18 13:15 91 12/10/18 13:05 96 12/10/18 12:55 95 12/10/18 12:50 92 12/10/18 12:45 99 12/10/18 12:40 100 12/10/18 12:38 100 12/10/18 10:53 96 Intake and Output 12/10/18 12/11/18 12/11/18 21:59 05:59 13:59 Intake Total 50 300 50 Output Total 125 420 100 Balance -75 -120 -50 Intake: IV 50 50 50 Zosyn 2.25 gm In Dextrose 5% in 50 50 50 Water 50 ml @ 100 mls/hr IV Q8H [facility] Rx#:[id number] Oral 250 Output: Void Amount 125 220 100 Stool 200 Other: Meal Jello Percent of Meal Consumed 100% Feeding Ability Independent Urine Appearance Clear Clear Clear Urine Color Abanda Dark Yellow Dark Yellow Stool Color Brown Green Stool Consistency Liquid Loose Weight 141 lb Intake & Output: Intake & Output 12/10/18 12/11/18 12/11/18 21:59 05:59 13:59 Intake Total 50 300 50 Output Total 125 420 100 Balance -75 -120 -50 Weight 141 lb Intake: IV 50 50 50 Zosyn 2.25 gm In Dextrose 5% in 50 50 50 Water 50 ml @ 100 mls/hr IV Q8H [facility] Rx#:[id number] Oral 250 Output: Void Amount 125 220 100 Stool 200 Other: Meal Jello Percent of Meal Consumed 100% Feeding Ability Independent Urine Appearance Clear Clear Clear Urine Color Abanda Dark Yellow Dark Yellow Stool Color Brown Green Stool Consistency Liquid Loose - General Appearance General appearance: chronically ill, fatigue EENT: mucous membranes moist Neck: supple Respiratory: clear Cardiology: no edema Gastrointestinal: no tenderness Integumentary: warm and dry Neurologic: no focal deficit, alert and oriented x3 Musculoskeletal: no deformities Psychiatric: mood/affect appropriate, cooperative - Lab 12/11/18 04:25 12/11/18 04:25 Most recent lab results Calcium 7.8 mg/dl (8.6-10.4) L 12/11/18 04:25 Phosphorus 4.0 mg/dL (2.7-4.5) 12/11/18 04:25 Magnesium 1.8 mg/dL (1.6-2.5) 12/11/18 04:25 Assessment and Plan (1) Acute on chronic renal failure Jessie Domingo is an 83-year-old female with suspected chronic kidney disease sent to ED for acute kidney injury. Her serum creatinine was 1.4 in 2016. 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 Her major complaint was weakness. She was sent to ED after blood work was abnormal. In ED work up was significant for suspected urinary tract infection. Acute kidney injury on suspected chronic kidney disease stage 3-4 associated with NSAIDs and mild left hydronephrosis due to left renal stone with obstruction present on arrival. Work up: Renal US on 12/07/18: Mildly atrophic and hyperechoic kidneys compatible with advanced age and medical renal disease. Scattered small nonobstructing stones in the calyces of both kidneys ranging up to 8 mm. Mild left hydronephrosis suggest the possibility of an unidentified left ureteral stone. Consider: CT urogram. 1.8 cm simple cyst in the left kidney - stable. CT Abdomen and Pelvis on 12/09/18: Large (25 x 8 mm) stone in the proximal left ureter resulting in moderate left hydronephrosis. Multiple (greater than 10). Nonobstructing stones in the pelvis calyces and the left kidney range up to 11 mm. 8 mm stone in the distal common bile duct at the ampulla resulting in moderate biliary dilatation. This is new from the previous study. Please correl ate with obstructive LFT pattern. Scattered cysts in the mid/inferior right kidney ranging up to 18 mm mid right kidney. Progress: Cystoscopy, retrograde pyelogram, stent placement for left renal stone with obstruction on 12/10/18. Urine output: Incontinent, 570 ml reported in the past 24 hours. Serum creatinine decreased from 2.8 to 2.5 in the past 24 hours. Plan: Recommend Sodium Bicarbonate 650 mg twice daily. Follow up with nephrology after discharge. Status: Acute Priority: Medium Qualifiers: Acute renal failure type: unspecified Chronic kidney disease stage: stage 3 (moderate) Qualified Code(s): N17.9 - Acute kidney failure, unspecified; N18.3 - Chronic kidney disease, stage 3 (moderate)
--- NOTE | 2018-12-11 07:04 | XRay Report ---
CLINICAL INFORMATION: stent placement COMPARISON: None. FINDINGS: Three digital images from the OR show retrograde left ureterogram demonstrating large filling defect in the proximal ureter corresponding to 25 mm stone seen on CT. It is results in moderate hydronephrosis. Final image apparently shows a stent successfully placed superior to the stone in the left renal pelvis. IMPRESSION: Successful intraoperative placement of left ureteral stent superior to a 25 mm obstructing stone in the proximal left ureter Interpreted and Authenticated by: Johan Mcclain 12/11/18
[2018-12-11] MEDS ORDERED: NITROGLYCERIN 0.4 MG TAB.SUBL SL PRN ×2 (08:54→10:14)
[2018-12-11] MEDS ORDERED: ASPIRIN 81 MG TAB.CHEW CHEWED ONE ×2 (08:54→10:14)
[2018-12-11] MEDS ORDERED: ENOXAPARIN 60 MG/0.6 ML SYRINGE SQ SCH (09:00)
[2018-12-11] MEDS ORDERED: NITROGLYCERIN 0.4 MG TAB.SUBL SL ONE (09:08)
[2018-12-11 09:24] LABS: Basophils # (Auto) 0 K/mcL (0.0-0.3); Basophils % (Auto) 0.3 % (0.0-2.0); Eosinophils # (Auto) 0.3 K/mcL (0.0-0.7); Eosinophils % (Auto) 3.4 % (0.0-7.0); Granulocytes % (Auto) 76.3 % (38.0-78.0); Hematocrit 30.2 % (36.0-48.0); Hemoglobin 9.5 g/dL (12.0-15.0); Lymphocytes # (Auto) 1.1 K/mcL (1.5-4.8); Lymphocytes % (Auto) 13.9 % (15.5-49.0); Mean Cell Volume 93.9 fL (80.0-100.0); Mean Corpuscular HGB Conc 31.5 g/dL (31.0-36.0); Monocytes # (Auto) 0.5 K/mcL (0.1-0.9); Monocytes % (Auto) 6.1 % (1.0-12.0); Platelet Count 188 K/mcL (140-440); RBC 3.21 M/mcL (4.00-5.20); WBC 8.3 K/mcL (4.5-11.0)
[2018-12-11 09:48] LABS: Creatine Kinase MB 1.2 ng/ml (0-2.9)
[2018-12-11] MEDS ORDERED: ONDANSETRON 4 MG/2 ML VIAL IV PRN (10:14)
[2018-12-11] MEDS ORDERED: diphenhydrAMINE 25 MG CAPSULE PO PRN (10:14)
[2018-12-11] MEDS ORDERED: ACETAMINOPHEN 325 MG TABLET PO PRN (10:14)
[2018-12-11] MEDS ORDERED: IPRATROPIUM/ALBUTEROL 3 ML AMPUL.NEB NEB PRN (10:14)
[2018-12-11] MEDS ORDERED: PROMETHAZINE 25 MG TABLET PO PRN (10:14)
[2018-12-11] MEDS ORDERED: METOPROLOL TARTRATE 5 MG/5 ML VIAL IV PRN (10:14)
[2018-12-11] MEDS ORDERED: PROCHLORPERAZINE 10 MG/2 ML VIAL IV PRN (10:14)
[2018-12-11] MEDS ORDERED: SENNOSIDES 1 TABLET PO PRN (10:14)
[2018-12-11] MEDS ORDERED: MIDAZOLAM 2 MG/2 ML VIAL IV ONE (10:14)
--- NOTE | 2018-12-11 10:26 | Internal Med Progress Note ---
Medical - PN: Subj Patient information: Note initiated : 12/11/18 at 10:16 am Service Date, if different from initiated Date: [] Patient: Jessie Domingo 83 y/o F admitted on 12/07/18 for Shortness of breath. Chief Complaint: [] Interval history: Ms. Domingo is a 83 year old F Presents to the ED with weakness and new A. fib. She was seen in the pulmonary clinic last week and an outpatient labs and EKG were reviewed today she is found to have elevated BUN/creatinine and A. fib. Patient has not seen if primary care provider since she got out of the hospital at [facility] in 2016 Patient's has some weakness but not particularly worse than usual. She does have some shortness of breath but she said that for 3 or 4 years. She did have some nausea and retching about a week or so ago. Denies any palpitations or tachycardiaor, she says occasionally she will get a very sharp right-sided chest pain lasts for a split second and then goes away. Denies any leg swelling. She says she used to long time ago but has not had any lately. 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 Old records show a nuclear stress test EF of 40% 2015 an echo around that time showed diastolic grade 3. Follow-up echo in May showed an EF over 50% and grade 2 diastolic dysfunction. Pulmonary records show creatinine 3.6 she is currently 3.0. She had a white blood cell count of 13 at [place] and urine that was concerning for urinary tract infection. TSH is within normal limits on pulmonary labs and troponin is negative. Chest x-ray in the ED unremarkable. She was in A. fib RVR with rate of 140 and given oral AV den katia with rate around 100. Urinalysis although 10 with squamous is elevated leukocyte and WBCs as well as hyaline casts, repeat analysis pending. Chest x-ray with cardiomegaly but no edema. 12/08 Says she feels little bit better but still weak. Having diarrhea overnight. No other overnight events. Bicarb down, renal function stable. 12/09 Patient seen examined, no acute issues, HR stable, bicarb up to 19, renal function improving, creat is 2.5 Patient feels weak, notes some pain in both her lower feet Cdiff is neg, start on banatrol Echo shows moderate to severely reduced lvef, pt on beta blockers, 12/10 Pt seen examined no acute issues pt CT done yesterday, noted to have moderate hydronephrosis, as well as a 8mm stone in the CBD Patient was placed on zosyn GI and urology consulted, plan for stent placement and ERCP today 12/11- patient complains of chest pain. Stat cardiac labs ordered. EKG shows minimal ST depression/T flattening. No overnight fever or chills. Status post ureteral stent placement/ERCP stone extraction. Continue anticoagulation on eliquis in the setting of non valvular A. fib. Ongoing PT OT/nutrition support. Transfer to telemetry in light of chest pain. Await cardiac enzymes. - Constitutional Vitals: Vital Signs Temp Pulse Resp BP Pulse Ox 98.4 F 87 21 119/46 97 12/11/18 09:20 12/11/18 09:41 12/11/18 09:41 12/11/18 09:41 12/11/18 09:41 Period Temp Pulse Resp BP Sys/Davies Pulse Ox Last 24 Hr 97.1 F-98.9 F 59-93 12-21 93-139/43-87 90-100 Intake and Output 12/10/18 12/11/18 12/11/18 21:59 05:59 13:59 Intake Total 50 300 170 Output Total 125 420 450 Balance -75 -120 -280 Weight 141 lb Intake & Output: Intake & Output 12/10/18 12/11/18 12/11/18 21:59 05:59 13:59 Intake Total 50 300 170 Output Total 125 420 450 Balance -75 -120 -280 Weight 141 lb Intake: IV 50 50 50 Zosyn 2.25 gm In Dextrose 5% in 50 50 50 Water 50 ml @ 100 mls/hr IV Q8H [facility] Rx#:[id number] Oral 250 120 Output: Void Amount 125 220 150 Stool 200 300 Other: Meal Jello Breakfast Percent of Meal Consumed 100% 75% Feeding Ability Independent Independent Urine Appearance Clear Clear Clear Urine Color [place] Dark Yellow Pale Bright Yellow Urine Odor Normal Stool Size Smear Stool Color Brown Green Green Black Stool Consistency Liquid Loose Liquid Watery General appearance: no acute distress Exam: Alert oriented Nonlabored breathing Mild anxiety Generalized xerosis no Lymphedema Medical - PN: Obj Da - Labs CBC & Chem 7: 12/11/18 08:59 12/11/18 04:25 Labs: Abnormal Lab Results 12/11/18 12/11/18 12/11/18 08:59 04:25 04:25 RBC 3.21 L 3.02 L Hgb 9.5 L 8.9 L Hct 30.2 L 28.5 L Gran % Lymph % (Auto) 13.9 L 12.6 L Lymph # (Auto) 1.1 L 0.8 L PT INR Chloride 109 H Carbon Dioxide 18 L BUN 40 H Creatinine 2.5 H Glucose Uric Acid Calcium 7.8 L Total Protein 5.6 L Albumin 2.2 L Albumin/Globulin Ratio 0.6 L 12/11/18 12/10/18 12/10/18 04:25 03:58 03:58 RBC 3.04 L Hgb 9.0 L Hct 28.1 L Gran % Lymph % (Auto) 11.6 L Lymph # (Auto) 0.8 L PT 15.2 H INR 1.2 H Chloride Carbon Dioxide BUN 44 H Creatinine 2.8 H Glucose Uric Acid 8.9 H Calcium 7.5 L Total Protein 5.6 L Albumin 2.4 L Albumin/Globulin Ratio 0.8 L 12/10/18 12/09/18 12/09/18 03:58 03:56 03:56 RBC 3.21 L Hgb 9.5 L Hct 29.8 L Gran % 79.8 H Lymph % (Auto) 8.5 L Lymph # (Auto) 0.6 L PT 15.5 H INR 1.2 H Chloride Carbon Dioxide 19 L BUN 46 H Creatinine 2.5 H Glucose 110 H Uric Acid 9.1 H Calcium 7.6 L Total Protein Albumin 2.5 L Albumin/Globulin Ratio 0.7 L Meds: Medications Acetaminophen (Tylenol) 650 mg PO Q4HP PRN PRN Reason: PAIN/FEVER > 101 Albuterol/Ipratropium (Duoneb) 3 ml NEB Q4HP PRN PRN Reason: Shortness Of Breath Apixaban (Eliquis) 2.5 mg PO BID [facility] Aspirin (Aspirin) 324 mg CHEWED ONCE ONE Stop: 12/11/18 10:15 Diphenhydramine HCl (Benadryl) 25 mg PO HSP PRN PRN Reason: Insomnia Famotidine (Pepcid) 20 mg PO HS MARCELA Piperacillin Sod/Tazobactam (Sod 2.25 gm/ Dextrose) 50 mls @ 100 mls/hr IV Q8H [facility]; Protocol Metoprolol Tartrate (Lopressor) 5 mg IV Q2HP PRN PRN Reason: Tachyarrhythmia HR>110 Metoprolol Tartrate (Lopressor) 12.5 mg PO BID [facility] Midazolam HCl (Versed) 0 mg IV ONCE ONE Stop: 12/11/18 10:15 Nitroglycerin (Nitrostat) 0.4 mg SL Q5M PRN PRN Reason: Chest Pain Ondansetron HCl (Zofran) 4 mg IV Q4HP PRN PRN Reason: Nausea And Vomiting Prochlorperazine (Compazine) 10 mg IV Q6HP PRN PRN Reason: Nausea And Vomiting Promethazine HCl (Phenergan) 0 mg PO Q6HP PRN PRN Reason: Nausea And Vomiting Senna (Senokot) 2 tab PO HSP PRN PRN Reason: Constipation Sodium Chloride (Saline Flush) 10 ml IV Q8 [facility] Medical - PN: A/P - Time Spent With Patient Total time spent is greater than 50% in coordination of care (as documented) at patient's floor/unit and/or counseling patient: 25 - 35 minutes - Narrative A/P Narrative: * Atypical chest pain-EKG minimal ST depression/T flattening. First set of cardiac enzymes negative. Continue monitoring * A. fib RVR- continue beta katia. Nonvalvular atrial fibrillation. Started on eliquis * Stage III B/IV CKD- mild hydronephrosis status post stent placement by urology 12/10. 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 Continue beta katia. Renal function limiting ARB * Metabolic acidosis managed by nephrology currently on bicarbonate drip * Cholelithiasis/choledocholithiasis status post ERCP stone extraction * Low electrolytes on replacement including magnesium and potassium * History of hypertension continue beta katia. ARB on hold * GERD on Pepcid * Anxiety disorder stable * DNR Plan * Serial cardiac enzymes * Telemetry monitoring * Continue anticoagulation * De-escalate antibiotics based on cultures * Pre-existing medical condition management as above * Renal issue management per nephrology Medical - PN: Qual - VTE Deep Vein Thrombosis/Pulmonary Embolism Present on Admission: No
[2018-12-11 10:40] LABS: Amylase 73 U/L (28-100); Lipase 17 U/L (7-60)
[2018-12-11] MEDS: METOPROLOL TARTRATE 25 MG TABLET PO SCH ×2 (11:20→20:16)
[2018-12-11] MEDS: APIXABAN 2.5 MG TABLET PO SCH ×2 (11:26→20:16)
[2018-12-11] MEDS ORDERED: FAMOTIDINE 20 MG TABLET PO SCH (21:00)
[2018-12-12] MEDS: PIPERACILLIN SODIUM/TAZOBACTAM 2.25 GM in DEXTROSE 5% IN WATER 50 ML IV SCH ×3 (05:40→21:44)
[2018-12-12] MEDS: 0.9 % SODIUM CHLORIDE 10 ML SYRINGE IV SCH ×4 (05:40→20:25)
[2018-12-12 05:51] LABS: ALT/SGPT 8 U/l (0-40); AST/SGOT 11 U/l (0-37); Albumin 2.3 gm/dL (3.2-5.2); Albumin/Globulin Ratio 0.7 (1.0-2.3); Alkaline Phosphatase 78 U/L (39-117); Bilirubin,Direct < 0.2 mg/dL (0.0-0.3); Bilirubin,Total 0.2 mg/dL (0.0-1.0); Blood Urea Nitrogen 44 mg/dl (8-23); Calcium 7.7 mg/dl (8.6-10.4); Carbon Dioxide 21 mmol/L (22-30); Chloride 106 mmol/L (96-108); Gamma Glutamyl Transpeptidase 35 U/L (5-36); Globulin 3.3 gm/dL (2.2-3.7); Glomerular Filtration Rate 16; Glucose 90 mg/dL (70-105); Lactate Dehydrogenase 141 U/L (94-250); Magnesium 1.6 mg/dL (1.6-2.5); Phosphorous 3.3 mg/dL (2.7-4.5); Sodium 139 mmol/L (133-145); Triglycerides 153 mg/dl (<150); Uric Acid 7.9 mg/dL (2.5-8.0)
[2018-12-12 05:52] LABS: Basophils # (Auto) 0 K/mcL (0.0-0.3); Basophils % (Auto) 0.2 % (0.0-2.0); Eosinophils # (Auto) 0.3 K/mcL (0.0-0.7); Eosinophils % (Auto) 4.9 % (0.0-7.0); Granulocytes % (Auto) 64.7 % (38.0-78.0); Hematocrit 26.6 % (36.0-48.0); Hemoglobin 8.3 g/dL (12.0-15.0); Lymphocytes # (Auto) 1.3 K/mcL (1.5-4.8); Lymphocytes % (Auto) 20.1 % (15.5-49.0); Mean Corpuscular HGB Conc 31.1 g/dL (31.0-36.0); Mean Platelet Volume 9.7 fL (7.4-10.4); Monocytes # (Auto) 0.7 K/mcL (0.1-0.9); Monocytes % (Auto) 10.1 % (1.0-12.0); Platelet Count 175 K/mcL (140-440); RBC 2.83 M/mcL (4.00-5.20); Red Cell Distribution Width 14.1 % (11.5-14.5); WBC 6.5 K/mcL (4.5-11.0)
--- NOTE | 2018-12-12 07:03 | Nephrology Progress Note ---
Subjective Patient information: Note initiated : 12/12/18 at 7:01 am Patient: Jessie Domingo 83 y/o F admitted on 12/07/18 for Shortness of breath. Chief Complaint: Weakness. Pertinent ROS: Weakness. Urinary incontinence. Objective - Vital Signs Vital signs: Vital Signs Temp Pulse Pulse Resp BP BP Pulse Ox 12/12/18 03:57 97.1 F 20 132/50 94 12/11/18 23:03 123/46 12/11/18 23:00 99.3 F H 58 L 24 H 103/46 92 12/11/18 20:12 136/57 92 12/11/18 20:00 98.5 F 59 L 18 136/57 94 12/11/18 16:07 98.2 F 16 130/47 96 12/11/18 15:02 116/60 96 12/11/18 14:02 127/43 95 12/11/18 13:16 117/46 96 12/11/18 12:00 97.8 F 20 115/60 96 12/11/18 11:09 64 119/49 93 12/11/18 10:31 97.5 F 72 21 109/52 96 12/11/18 09:41 87 21 119/46 97 12/11/18 09:20 98.4 F 72 16 97 12/11/18 09:15 75 98/52 97 12/11/18 09:10 81 121/43 98 12/11/18 09:05 76 114/57 99 12/11/18 08:59 84 116/50 98 12/11/18 08:55 93 H 107/50 94 12/11/18 08:54 93 H 16 98 12/11/18 08:53 124/61 12/11/18 08:50 124/60 94 12/11/18 08:16 96 12/11/18 07:20 98.8 F 65 19 125/64 96 Intake and Output 12/11/18 12/12/18 12/12/18 21:59 05:59 13:59 Intake Total 290 50 Output Total 350 425 75 Balance -60 -375 -75 Intake: IV 50 50 Zosyn 2.25 gm In Dextrose 5% in 50 50 Water 50 ml @ 100 mls/hr IV Q8H [facility] Rx#:[id number] Oral 240 Output: Void Amount 100 275 75 # of times incontinent of urine 0 0 Stool 250 150 Other: Meal Dinner Percent of Meal Consumed 50% Feeding Ability Assist with Tray Set Up Urine Appearance Clear Cloudy Sediment Urine Color [place] Dark Yellow Light [place]le Urine Odor Normal Normal Stool Size Moderate Stool Color Brown Green Stool Consistency Soft Loose # Voids 1 0 Weight 142 lb Intake & Output: Intake & Output 12/11/18 12/12/18 12/12/18 21:59 05:59 13:59 Intake Total 290 50 Output Total 350 425 75 Balance -60 -375 -75 Weight 142 lb Intake: IV 50 50 Zosyn 2.25 gm In Dextrose 5% in 50 50 Water 50 ml @ 100 mls/hr IV Q8H [facility] Rx#:[id number] Oral 240 Output: Void Amount 100 275 75 # of times incontinent of urine 0 0 Stool 250 150 Other: Meal Dinner Percent of Meal Consumed 50% Feeding Ability Assist with Tray Set Up Urine Appearance Clear Cloudy Sediment Urine Color [place] Dark Yellow Light [place]le Urine Odor Normal Normal Stool Size Moderate Stool Color Brown Green Stool Consistency Soft Loose # Voids 1 0 - General Appearance General appearance: chronically ill, fatigue EENT: mucous membranes moist Neck: supple Respiratory: clear Cardiology: no edema Gastrointestinal: no tenderness Integumentary: warm and dry Neurologic: no focal deficit, alert and oriented x3 Musculoskeletal: no deformities Psychiatric: mood/affect appropriate, cooperative - Lab 12/12/18 03:51 12/12/18 03:51 Most recent lab results Calcium 7.7 mg/dl (8.6-10.4) L 12/12/18 03:51 Phosphorus 3.3 mg/dL (2.7-4.5) 12/12/18 03:51 Magnesium 1.6 mg/dL (1.6-2.5) 12/12/18 03:51 Assessment and Plan (1) Acute on chronic renal failure Jessie Domingo is an 83-year-old female with suspected chronic kidney disease sent to ED for acute kidney injury. Her serum creatinine was 1.4 in 2016. 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 Her major complaint was weakness. She was sent to ED after blood work was abnormal. In ED work up was significant for suspected urinary tract infection. Acute kidney injury on suspected chronic kidney disease stage 3-4 associated with NSAIDs and mild left hydronephrosis due to left renal stone with obstruction, present on arrival. Work up: Renal US on 12/07/18: Mildly atrophic and hyperechoic kidneys compatible with advanced age and medical renal disease. Scattered small nonobstructing stones in the calyces of both kidneys ranging up to 8 mm. Mild left hydronephrosis suggest the possibility of an unidentified left ureteral stone. Consider: CT urogram. 1.8 cm simple cyst in the left kidney - stable. CT Abdomen and Pelvis on 12/09/18: Large (25 x 8 mm) stone in the proximal left ureter resulting in moderate left hydronephrosis. Multiple (greater than 10). Nonobstructing stones in the pelvis calyces and the left kidney range up to 11 mm. 8 mm stone in the distal common bile duct at the ampulla resulting in moderate biliary dilatation. This is new from the previous study. Please correlate with obstructive LFT pattern. Scattered cysts in the mid/inferior right kidney ranging up to 18 mm mid right kidney. Progress: Cystoscopy, retrograde pyelogram, stent placement for left renal stone with obstruction on 12/10/18. Urine output: Incontinent, 525 ml reported in the past 24 hours. Serum creatinine increased from 2.5 to 2.6 in the past 24 hours. Metabolic acidosis. Sodium Bicarbonate 650 mg twice daily ordered. Plan: Follow up with nephrology after discharge. Status: Acute Priority: Medium Qualifiers: Acute renal failure type: unspecified Chronic kidney disease stage: stage 3 (moderate) Qualified Code(s): N17.9 - Acute kidney failure, unspecified; N18.3 - Chronic kidney disease, stage 3 (moderate)
[2018-12-12] MEDS ORDERED: SODIUM BICARBONATE 650 MG TABLET PO SCH (09:00)
[2018-12-12] MEDS: APIXABAN 2.5 MG TABLET PO SCH ×2 (09:42→20:25)
[2018-12-12] MEDS: METOPROLOL TARTRATE 25 MG TABLET PO SCH (09:42)
[2018-12-12] MEDS ORDERED: MAGNESIUM SULFATE 2 GM/50 ML BAG IV ONE (11:15)
--- NOTE | 2018-12-12 11:54 | Discharge Summary ---
Medical - DS: Prov Patient information: Note initiated : 12/12/18 at 11:50 am Service Date, if different from initiated Date: [] Patient: Jessie Domingo 83 y/o F admitted on 12/07/18 for Shortness of breath. Chief Complaint: [] Date of admission: 12/07/18 16:28 Discharge date: 12/13/18 Primary care physician: Oliverio Yanez Consults: 12/07/18 Consult to Physician [CONS] Stat Comment: Consulting Provider: Nahid Dee Reason For Exam: Physician to Consult 12/07/18 16:41 Consult to Physician [CONS] Routine Comment: Consulting Provider: Yair Shelton Reason For Exam: Physician to Consult 12/09/18 15:43 Consult to Physician [CONS] Routine Comment: Consulting Provider: Radha Hinton Reason For Exam: Physician to Consult Medical - DS: Meds - Discharge Medications Prescriptions: Amoxicillin/Potassium Clav [Augmentin] 875 mg PO Q12H #14 tab Apixaban [Eliquis] 2.5 mg PO BID #60 tab Active and Home Medications: Home Medications Aspirin [Casa Chewable Aspirin] 81 mg PO DAILY 03/01/16 [History Confirmed 12/07/18 Last Taken Unknown] Atorvastatin [Lipitor] 80 mg PO HS 03/01/16 [History Confirmed 12/07/18 Last Taken Unknown] Metoprolol Succinate [Toprol Xl] 25 mg PO DAILY 03/01/16 [History Confirmed 12/07/18 Last Taken Unknown] Omeprazole [Prilosec] 20 mg PO DAILY 03/01/16 [History Confirmed 12/07/18 Last Taken Unknown] Furosemide [Lasix] 40 mg PO DAILYP PRN 12/07/18 [History Confirmed 12/07/18 Last Taken Unknown] Magnesium Oxide [Magnesium] 400 mg PO HS 12/07/18 [History Confirmed 12/07/[address] Taken Unknown] Potassium Chloride [Kdur] 20 meq PO DAILY 12/07/18 [History Confirmed 12/07/18 Last Taken Unknown] Amoxicillin/Potassium Clav [Augmentin] 875 mg PO Q12H #14 tab 12/12/18 [Rx Last Taken Unknown] Apixaban [Eliquis] 2.5 mg PO BID #60 tab 12/12/18 [Rx Last Taken Unknown] Medical - DS: Hosp Hospital course: Discharge diagnosis * Complicated UTI on Zosyn. 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 Continue beta katia/diuretics. Renal function limiting ARB. Recommend following up with cardiology as outpatient * Stage IIIb/IV CKD- Creatinine around 2.5. Follow-up nephrology outpatient * Obstructive uropathy with mild hydronephrosis/2 cm renal stone. Status post stent placement by urology 12/10. Follow-up urology as advised by urologist * Atypical chest pain-clinically resolved. EKG minimal ST depression/T fla ttening. Negative serial cardiac enzymes. * A. fib RVR- now rate controlled. Continue beta katia. Nonvalvular atrial fibrillation. Started on eliquis * Metabolic acidosis managed by nephrology -resolved * Cholelithiasis/choledocholithiasis status post ERCP stone extraction. Follow- up with GI on discharge * Low potassium/magnesium -resolved with replacement * History of hypertension continue beta katia. ARB held in light of elevated creatinine. * GERD on Pepcid * Anxiety disorder stable Brief hospital course Ms. Domingo is a 83 year old F Presents to the ED with weakness and new A. fib. She was seen in the pulmonary clinic last week and an outpatient labs and EKG were reviewed today she is found to have elevated BUN/creatinine and A. fib. Patient has not seen if primary care provider since she got out of the hospital at [facility] in 2015 Patient's has some weakness but not particularly worse than usual. She does have some shortness of breath but she said that for 3 or 4 years. She did have some nausea and retching about a week or so ago. Denies any palpitations or tachycardiaor, she says occasionally she will get a very sharp right-sided chest pain lasts for a split second and then goes away. Denies any leg swelling. She says she used to long time ago but has not had any lately. She does not follow with cardiac cath rn. Old records show a nuclear stress test EF of 40% 2014 an echo around that time showed diastolic grade 3. Follow-up echo in May showed an EF over 50% and grade 2 diastolic dysfunction. Pulmonary records show creatinine 3.6 she is currently 3.0. She had a white blood cell count of 13 at [place] and urine that was concerning for urinary tract infection. TSH is within normal limits on pulmonary labs and troponin is negative. Chest x-ray in the ED unremarkable. She was in A. fib RVR with rate of 140 and given oral AV den katia with rate around 100. Urinalysis although 10 with squamous is elevated leukocyte and WBCs as well as hyaline casts, repeat analysis pending. Chest x-ray with cardiomegaly but no edema. 12/08 Says she feels little bit better but still weak. Having diarrhea overnight. No other overnight events. Bicarb down, renal function stable. 12/09 Patient seen examined, no acute issues, HR stable, bicarb up to 19, renal function improving, creat is 2.5 Patient feels weak, notes some pain in both her lower feet Cdiff is neg, start on banatrol Echo shows moderate to severely reduced lvef, pt on beta blockers, 12/10 Pt seen examined no acute issues pt CT done yesterday, noted to have moderate hydronephrosis, as well as a 8mm stone in the CBD Patient was placed on zosyn GI and urology consulted, plan for stent placement and ERCP today 12/11- patient complains of chest pain. Stat cardiac labs ordered. EKG shows minimal ST depression/T flattening. No overnight fever or chills. Status post ureteral stent placement/ERCP stone extraction. Continue anticoagulation on el iquis in the setting of non valvular A. fib. Ongoing PT OT/nutrition support. Transfer to telemetry in light of chest pain. Await cardiac enzymes. 12/12- patient status post ureteral stent/ERCP. 2 cm renal stone. No overnight events including fever chills or chest pain. Serial cardiac enzymes negative. Plan to continue antibiotic for additional 7 days oral Augmentin on discharge. Continue anticoagulation for CVA prophylaxis. Patient feels much better and close to baseline. Anticipate discharge in 24 hours 12/13- patient doing well. Discharge home with home health physical therapy. Will follow with urology as outpatient. Continue antibiotic for additional 6 days oral Augmentin. Continue anticoagulation for CVA prophylaxis. Recommend outpatient cardiology/nephrology/urology follow-up on discharge. Instructions and medications details as below. Patient feels at baseline Discharge diagnosis: . - Time Spent with Patient Total time spent providing and/or coordinating discharge services: Greater than 30 minutes Medical - DS: Exam - Constitutional Vitals: Vital Signs Temp Pulse Resp BP BP Pulse Ox 12/12/18 08:54 95 12/12/18 07:52 98.2 F 20 141/59 93 12/12/18 03:57 97.1 F 20 132/50 94 12/11/18 23:03 123/46 12/11/18 23:00 99.3 F H 58 L 24 H 103/46 92 12/11/18 20:12 136/57 92 12/11/18 20:00 98.5 F 59 L 18 136/57 94 12/11/18 16:07 98.2 F 16 130/47 96 12/11/18 15:02 116/60 96 12/11/18 14:02 127/43 95 12/11/18 13:16 117/46 96 12/11/18 12:00 97.8 F 20 115/60 96 Intake and Output 12/11/18 12/12/18 12/12/18 21:59 05:59 13:59 Intake Total 290 50 670 Output Total 350 425 200 Balance -60 -375 470 Intake: IV 50 50 50 Zosyn 2.25 gm In Dextrose 5% in 50 50 50 Water 50 ml @ 100 mls/hr IV Q8H [facility] Rx#:[id number] Oral 240 620 Output: Void Amount 100 275 200 # of times incontinent of urine 0 0 Stool 250 150 Other: Meal Dinner Breakfast Percent of Meal Consumed 50% 100% Feeding Ability Assist with Tray Set Up Assist with Tray Set Up Urine Appearance Clear Cloudy Sediment Urine Color [place] Dark Yellow Light [place]le Urine Odor Normal Normal Stool Size Moderate Stool Color Brown Green Stool Consistency Soft Loose # Voids 1 0 Weight 142 lb Medical - DS: Data Labs on day of discharge: Labs from last 24 hours 12/12/18 12/12/18 12/11/18 03:51 03:51 14:56 WBC 6.5 RBC 2.83 L Hgb 8.3 L Hct 26.6 L MCV 94.0 MCH 29.3 MCHC 31.1 RDW 14.1 Plt Count 175 MPV 9.7 Gran % 64.7 Lymph % (Auto) 20.1 [place] % (Auto) 10.1 Eos % (Auto) 4.9 Baso % (Auto) 0.2 Gran # 4.2 Lymph # (Auto) 1.3 L [place] # (Auto) 0.7 Eos # (Auto) 0.3 Baso # (Auto) 0 Sodium 139 Potassium 4.0 Chloride 106 Carbon Dioxide 21 L Anion Gap 12.0 BUN 44 H Creatinine 2.6 H GFR Calculation 16 Glucose 90 Uric Acid 7.9 Calcium 7.7 L Phosphorus 3.3 Magnesium 1.6 Total Bilirubin 0.2 Direct Bilirubin < 0.2 GGT 35 AST 11 ALT 8 Alkaline Phosphatase 78 Lactate Dehydrogenase 141 Troponin T 0.01 Total Protein 5.6 L Albumin 2.3 L Globulin 3.3 Albumin/Globulin Ratio 0.7 L Triglycerides 153 H Medical - DS: A/P - Patient/Caregiver Discharge Instructions Activity: as per physical therapy (home health PT), resume usual activities as tolerated Diet: Regular Diet Additional Instructions: Follow-up PCP in 5 days Follow-up nephrology in 2 weeks Follow-up urology Dr. Wiseman as advised by urology Recommend follow-up with cardiology for CHF/A. fib management GI follow-up on discharge to be coordinated by PCP Continue anticoagulation on apixiban for CVA prophylaxis I recommend PCP to check CBC BMP UA as a posthospital follow-up Antibiotics for additional 6 days of Augmentin Continue aggressive bowel regimen to prevent constipation Continue fall precautions daily weights measurements and take additional 40 mg Lasix for 3 days if weight gain over 4 pounds over baseline or worsening shortness of breath and call primary care physician if inadequate response to Lasix Continue aggressive PT OT evaluation and treatment at [facility]. [facility] and treatment if indicated All meals on chair sitting upright at 90 degrees to prevent aspiration Return to ER if worsening fever chills shortness of breath, diarrhea, bleeding Review risk and side effect profile of medications including antibiotics and apixiban. Side effect may include mild to severe reaction including rash, diarrhea, cdiff and even from life threatening bleed which can be prevented by close follow-up with PCP and monitoring for side effects Continue diet and activity as advised Discussed importance of medication adherence Please review medication list with patient prior to discharge Please schedule follow-up with PCP/Providers prior to discharge and provide printouts Prescriptions: Amoxicillin/Potassium Clav [Augmentin] 875 mg PO Q12H #14 tab Apixaban [Eliquis] 2.5 mg PO BID #60 tab - Follow up Plan Follow up with: Oliverio Yanez PA-C [Primary Care Provider] - Fco Wiseman MD [Physician] - 12/28/18 3:00 pm Disposition: Home Health Service Prognosis: Fair Rehab Potential: Fair I certify that the patient requires SNF services: No Overall status at discharge: patient is progressing back to baseline Medical - DS: Qual - VTE Deep Vein Thrombosis/Pulmonary Embolism Present on Admission: No
--- NOTE | 2018-12-12 12:01 | Internal Med Progress Note ---
Medical - PN: Subj Patient information: Note initiated : 12/12/18 at 11:56 am Service Date, if different from initiated Date: [] Patient: Jessie Domingo 83 y/o F admitted on 12/07/18 for Shortness of breath. Chief Complaint: [] Interval history: Ms. Domingo is a 83 year old F Presents to the ED with weakness and new A. fib. She was seen in the pulmonary clinic last week and an outpatient labs and EKG were reviewed today she is found to have elevated BUN/creatinine and A. fib. Patient has not seen if primary care provider since she got out of the hospital at [facility] in 2016 Patient's has some weakness but not particularly worse than usual. She does have some shortness of breath but she said that for 3 or 4 years. She did have some nausea and retching about a week or so ago. Denies any palpitations or tachycardiaor, she says occasionally she will get a very sharp right-sided chest pain lasts for a split second and then goes away. Denies any leg swelling. She says she used to long time ago but has not had any lately. 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 Old records show a nuclear stress test EF of 40% 2015 an echo around that time showed diastolic grade 3. Follow-up echo in May showed an EF over 50% and grade 2 diastolic dysfunction. Pulmonary records show creatinine 3.6 she is currently 3.0. She had a white blood cell count of 13 at [facility] and urine that was concerning for urinary tract infection. TSH is within normal limits on pulmonary labs and troponin is negative. Chest x-ray in the ED unremarkable. She was in A. fib RVR with rate of 140 and given oral AV den katia with rate around 100. Urinalysis although 10 with squamous is elevated leukocyte and WBCs as well as hyaline casts, repeat analysis pending. Chest x-ray with cardiomegaly but no edema. 12/08 Says she feels little bit better but still weak. Having diarrhea overnight. No other overnight events. Bicarb down, renal function stable. 12/09 Patient seen examined, no acute issues, HR stable, bicarb up to 19, renal function improving, creat is 2.5 Patient feels weak, notes some pain in both her lower feet Cdiff is neg, start on banatrol Echo shows moderate to severely reduced lvef, pt on beta blockers, 12/10 Pt seen examined no acute issues pt CT done yesterday, noted to have moderate hydronephrosis, as well as a 8mm stone in the CBD Patient was placed on zosyn GI and urology consulted, plan for stent placement and ERCP today 12/11- patient complains of chest pain. Stat cardiac labs ordered. EKG shows minimal ST depression/T flattening. No overnight fever or chills. Status post ureteral stent placement/ERCP stone extraction. Continue anticoagulation on eliquis in the setting of non valvular A. fib. Ongoing PT OT/nutrition support. Transfer to telemetry in light of chest pain. Await cardiac enzymes. 12/12- patient status post ureteral stent/ERCP. 2 cm renal stone. No overnight events including fever chills or chest pain. Serial cardiac enzymes negative. Plan to continue antibiotic for additional 7 days oral Augmentin on discharge. Continue anticoagulation for CVA prophylaxis. Recommend outpatient cardiology/nephrology/urology follow-up on discharge. Patient feels much better and close to baseline. Anticipate discharge in 24 hours - Constitutional Vitals: Vital Signs Temp Pulse Resp BP Pulse Ox 98.2 F 58 L 20 141/59 95 12/12/18 07:52 12/11/18 23:00 12/12/18 07:52 12/12/18 07:52 12/12/18 08:54 Period Temp Pulse Resp BP Sys/Davies Pulse Ox Last 24 Hr 97.1 F-99.3 F 58-59 16-24 103-141/43-60 92-96 Intake and Output 12/11/18 12/12/18 12/12/18 21:59 05:59 13:59 Intake Total 290 50 670 Output Total 350 425 200 Balance -60 -375 470 Weight 142 lb Intake & Output: Intake & Output 12/11/18 12/12/18 12/12/18 21:59 05:59 13:59 Intake Total 290 50 670 Output Total 350 425 200 Balance -60 -375 470 Weight 142 lb Intake: IV 50 50 50 Zosyn 2.25 gm In Dextrose 5% in 50 50 50 Water 50 ml @ 100 mls/hr IV Q8H MARCELA Rx#:[id number] Oral 240 620 Output: Void Amount 100 275 200 # of times incontinent of urine 0 0 Stool 250 150 Other: Meal Dinner Breakfast Percent of Meal Consumed 50% 100% Feeding Ability Assist with Tray Set Up Assist with Tray Set Up Urine Appearance Clear Cloudy Sediment Urine Color [place] Dark Yellow Light Rachele Urine Odor Normal Normal Stool Size Moderate Stool Color Brown Green Stool Consistency Soft Loose # Voids 1 0 General appearance: no acute distress Exam: Alert oriented nonlabored breathing No anxiety Ambulating with physical therapy and assistance No lymphedema Medical - PN: Obj Da - Labs CBC & Chem 7: 12/12/18 03:51 12/12/18 03:51 Labs: Abnormal Lab Results 12/12/18 12/12/18 12/11/18 03:51 03:51 10:00 RBC 2.83 L Hgb 8.3 L Hct 26.6 L Lymph % (Auto) Lymph # (Auto) 1.3 L PT INR APTT 47 H Chloride Carbon Dioxide 21 L BUN 44 H Creatinine 2.6 H Uric Acid Calcium 7.7 L Total Protein 5.6 L Albumin 2.3 L Albumin/Globulin Ratio 0.7 L Triglycerides 153 H 12/11/18 12/11/18 12/11/18 08:59 04:25 04:25 RBC 3.21 L 3.02 L Hgb 9.5 L 8.9 L Hct 30.2 L 28.5 L Lymph % (Auto) 13.9 L 12.6 L Lymph # (Auto) 1.1 L 0.8 L PT INR APTT Chloride 109 H Carbon Dioxide 18 L BUN 40 H Creatinine 2.5 H Uric Acid Calcium 7.8 L Total Protein 5.6 L Albumin 2.2 L Albumin/Globulin Ratio 0.6 L Triglycerides 12/11/18 12/10/18 12/10/18 04:25 03:58 03:58 RBC 3.04 L Hgb 9.0 L Hct 28.1 L Lymph % (Auto) 11.6 L Lymph # (Auto) 0.8 L PT 15.2 H INR 1.2 H APTT Chloride Carbon Dioxide BUN 44 H Creatinine 2.8 H Uric Acid 8.9 H Calcium 7.5 L Total Protein 5.6 L Albumin 2.4 L Albumin/Globulin Ratio 0.8 L Triglycerides 12/10/18 03:58 RBC Hgb Hct Lymph % (Auto) Lymph # (Auto) PT 15.5 H INR 1.2 H APTT Chloride Carbon Dioxide BUN Creatinine Uric Acid Calcium Total Protein Albumin Albumin/Globulin Ratio Triglycerides Meds: Medications Acetaminophen (Tylenol) 650 mg PO Q4HP PRN PRN Reason: PAIN/FEVER > 101 Albuterol/Ipratropium (Duoneb) 3 ml NEB Q4HP PRN PRN Reason: Shortness Of Breath Apixaban (Eliquis) 2.5 mg PO BID REPLACED BY [facility] Last Admin: 12/12/18 09:42 Dose: 2.5 mg Documented by: Diphenhydramine HCl (Benadryl) 25 mg PO HSP PRN PRN Reason: Insomnia Last Admin: 12/11/18 20:16 Dose: 25 mg Documented by: Famotidine (Pepcid) 20 mg PO HS REPLACED BY [facility] Last Admin: 12/11/18 21:48 Dose: Not Given Documented by: Piperacillin Sod/Tazobactam (Sod 2.25 gm/ Dextrose) 50 mls @ 100 mls/hr IV Q8H REPLACED BY [facility]; Protocol Last Infusion: 12/12/18 06:10 Dose: Infused Documented by: Magnesium Sulfate (Magnesium Sulfate) 2 gm in 50 mls @ 25 mls/hr IV ONCE ONE Stop: 12/12/18 13:14 Last Infusion: 12/12/18 11:35 Dose: 50 mls/hr Documented by: Metoprolol Tartrate (Lopressor) 5 mg IV Q2HP PRN PRN Reason: Tachyarrhythmia HR>110 Metoprolol Tartrate (Lopressor) 12.5 mg PO BID REPLACED BY [facility] Last Admin: 12/12/18 09:42 Dose: 12.5 mg Documented by: Nitroglycerin (Nitrostat) 0.4 mg SL Q5M PRN PRN Reason: Chest Pain Ondansetron HCl (Zofran) 4 mg IV Q4HP PRN PRN Reason: Nausea And Vomiting Prochlorperazine (Compazine) 10 mg IV Q6HP PRN PRN Reason: Nausea And Vomiting Promethazine HCl (Phenergan) 0 mg PO Q6HP PRN PRN Reason: Nausea And Vomiting Senna (Senokot) 2 tab PO HSP PRN PRN Reason: Constipation Sodium Bicarbonate (Sodium Bicarbonate) 650 mg PO BID REPLACED BY [facility] Last Admin: 12/12/18 09:42 Dose: 650 mg Documented by: Sodium Chloride (Saline Flush) 10 ml IV Q8 REPLACED BY [facility] Last Admin: 12/12/18 11:35 Dose: 10 ml Documented by: Medical - PN: A/P - Time Spent With Patient Total time spent is greater than 50% in coordination of care (as documented) at patient's floor/unit and/or counseling patient: 15 - 24 minutes - Narrative A/P Narrative: * Complicated UTI on Zosyn. 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 Continue beta katia. Renal function limiting ARB * Stage IIIb/IV CKD- Creatinine around 2.5. Nephrology on board * Obstructive uropathy with mild hydronephrosis/2 cm renal stone. Status post stent placement by urology 12/10. * Atypical chest pain-clinically resolved. EKG minimal ST depression/T flattening. Negative cardiac enzymes. * A. fib RVR- now rate controlled. Continue beta katia. Nonvalvular atrial fibrillation. Started on eliquis * Metabolic acidosis managed by nephrology -resolved * Cholelithiasis/choledocholithiasis status post ERCP stone extraction. Follow- up with GI on discharge * Low potassium/magnesium -resolved with replacement * History of hypertension continue beta katia. ARB on hold * GERD on Pepcid * Anxiety disorder stable * DNR Plan * Facility medical floor * Continue anticoagulation * Pre-existing medical condition management as above * Renal issue management per nephrology * Follow up with nephrology/urology/cardiology/GI on discharge Medical - PN: Qual - VTE Deep Vein Thrombosis/Pulmonary Embolism Present on Admission: No
[2018-12-12] MEDS ORDERED: ONDANSETRON 4 MG/2 ML VIAL IV PRN (12:15)
[2018-12-12] MEDS ORDERED: diphenhydrAMINE 25 MG CAPSULE PO PRN (12:15)
[2018-12-12] MEDS ORDERED: PROMETHAZINE 25 MG TABLET PO PRN (12:15)
[2018-12-12] MEDS ORDERED: PROCHLORPERAZINE 10 MG/2 ML VIAL IV PRN (12:15)
[2018-12-12] MEDS ORDERED: SENNOSIDES 1 TABLET PO PRN (12:15)
[2018-12-12] MEDS ORDERED: FUROSEMIDE 40 MG TABLET PO PRN (12:15)
[2018-12-12] MEDS ORDERED: ACETAMINOPHEN 325 MG TABLET PO PRN (12:15)
[2018-12-12] MEDS ORDERED: NITROGLYCERIN 0.4 MG TAB.SUBL SL PRN (12:15)
[2018-12-12] MEDS ORDERED: METOPROLOL TARTRATE 5 MG/5 ML VIAL IV PRN (12:15)
[2018-12-12] MEDS ORDERED: IPRATROPIUM/ALBUTEROL 3 ML AMPUL.NEB NEB PRN (12:15)
[2018-12-12] MEDS: SODIUM BICARBONATE 650 MG TABLET PO SCH (20:25)
[2018-12-12] MEDS ORDERED: MAGNESIUM OXIDE 400 MG TABLET PO SCH (21:00)
[2018-12-12] MEDS ORDERED: FAMOTIDINE 20 MG TABLET PO SCH (21:00)
[2018-12-12] MEDS ORDERED: ATORVASTATIN 20 MG TABLET PO SCH (21:00)
--- NOTE | 2018-12-13 05:22 | Nephrology Progress Note ---
Subjective Patient information: Note initiated : 12/13/18 at 5:20 am Patient: Jessie Domingo 83 y/o F admitted on 12/07/18 for Shortness of breath. Chief Complaint: Weakness. Pertinent ROS: Feels better. Weakness. Reports good urine output. No dysuria or hematuria. Objective - Vital Signs Vital signs: Vital Signs Temp Pulse Resp BP BP Pulse Ox 12/13/18 02:51 97.3 F 59 L 17 119/51 93 12/12/18 23:44 97.7 F 58 L 18 136/57 94 12/12/18 19:36 97.6 F 62 20 144/57 97 12/12/18 15:32 97.3 F 64 20 141/57 94 12/12/18 11:57 98.1 F 20 133/68 94 12/12/18 08:54 95 12/12/18 07:52 98.2 F 20 141/59 93 Intake and Output 12/12/18 12/12/18 12/13/18 13:59 21:59 05:59 Intake Total 840 490 350 Output Total 250 850 350 Balance 590 -360 0 Intake: Nourishment/Supplement quantity 240 (ml) IV 100 50 50 Zosyn 2.25 gm In Dextrose 5% in 50 50 50 Water 50 ml @ 100 mls/hr IV Q8H MARCELA Rx#:[id number] Oral 740 200 300 Output: Urine Catheter Amount 100 125 Void Amount 250 150 75 # of times incontinent of urine 0 Stool 600 150 Other: Meal Lunch Dinner Percent of Meal Consumed 75% 100% Feeding Ability Assist with Tray Set Up Urine Appearance Cloudy Cloudy Urine Color Light [place]le Blood Tinged Blood Tinged Urine Odor Normal Normal Stool Size Large Stool Color Green Green Black Black Stool Consistency Liquid Liquid Loose Loose # Voids 0 Weight 141 lb Patient Weight 12/13/18 05:59 Weight 141 lb Intake & Output: Intake & Output 12/12/18 12/12/18 12/13/18 13:59 21:59 05:59 Intake Total 840 490 350 Output Total 250 850 350 Balance 590 -360 0 Weight 141 lb Intake: Nourishment/Supplement quantity 240 (ml) IV 100 50 50 Zosyn 2.25 gm In Dextrose 5% in 50 50 50 Water 50 ml @ 100 mls/hr IV Q8H MARCELA Rx#:[id number] Oral 740 200 300 Output: Urine Catheter Amount 100 125 Void Amount 250 150 75 # of times incontinent of urine 0 Stool 600 150 Other: Meal Lunch Dinner Percent of Meal Consumed 75% 100% Feeding Ability Assist with Tray Set Up Urine Appearance Cloudy Cloudy Urine Color Light [place] Blood Tinged Blood Tinged Urine Odor Normal Normal Stool Size Large Stool Color Green Green Black Black Stool Consistency Liquid Liquid Loose Loose # Voids 0 - General Appearance General appearance: chronically ill, fatigue EENT: mucous membranes moist Neck: supple Cardiology: no edema Gastrointestinal: no tenderness Integumentary: warm and dry Neurologic: no focal deficit, alert and oriented x3 Musculoskeletal: no deformities Psychiatric: mood/affect appropriate, cooperative - Lab 12/13/18 04:34 12/13/18 04:34 Most recent lab results Calcium 7.7 mg/dl (8.6-10.4) L 12/12/18 03:51 Phosphorus 3.3 mg/dL (2.7-4.5) 12/12/18 03:51 Magnesium 1.6 mg/dL (1.6-2.5) 12/12/18 03:51 Assessment and Plan (1) Acute on chronic renal failure Jessie Domingo is an 83-year-old female with suspected chronic kidney disease sent to ED for acute kidney injury. Her serum creatinine was 1.4 in 2016. She does not remember seeing a hand icer. Her major complaint was weakness. She was sent to ED after blood work was abnormal. In ED work up was significant for suspected urinary tract infection. Acute kidney injury on suspected chronic kidney disease stage 3-4 associated with NSAIDs and mild left hydronephrosis due to left renal stone with obstruction, present on arrival. Work up: Renal US on 12/07/18: Mildly atrophic and hyperechoic kidneys compatible with advanced age and medical renal disease. Scattered small nonobstructing stones in the calyces of both kidneys ranging up to 8 mm. Mild left hydronephrosis suggest the possibility of an unidentified left ureteral stone. Consider: CT urogram. 1.8 cm simple cyst in the left kidney - stable. CT Abdomen and Pelvis on 12/09/18: Large (25 x 8 mm) stone in the proximal left ureter resulting in moderate left hydronephrosis. Multiple (greater than 10). Nonobstructing stones in the pelvis calyces and the left kidney range up to 11 mm. 8 mm stone in the distal common bile duct at the ampulla resulting in moderate biliary dilatation. This is new from the previous study. Please correlate with obstructive LFT pattern. Scattered cysts in the mid/inferior right kidney ranging up to 18 mm mid right kidney. Progress: Cystoscopy, retrograde pyelogram, stent placement for left renal stone with obstruction on 12/10/18. Urine output: Incontinent, 475 ml reported in the past 24 hours. Serum creatinine increased from 2.5 to 2.6 in the past 24 hours. Metabolic acidosis on Sodium Bicarbonate 650 mg twice daily. Plan: Follow up with nephrology after discharge. Status: Acute Priority: Medium Qualifiers: Acute renal failure type: unspecified Chronic kidney disease stage: stage 3 (moderate) Qualified Code(s): N17.9 - Acute kidney failure, unspecified; N18.3 - Chronic kidney disease, stage 3 (moderate)
[2018-12-13 05:42] LABS: Basophils # (Auto) 0 K/mcL (0.0-0.3); Basophils % (Auto) 0.7 % (0.0-2.0); Eosinophils # (Auto) 0.3 K/mcL (0.0-0.7); Eosinophils % (Auto) 5.2 % (0.0-7.0); Granulocytes % (Auto) 58.8 % (38.0-78.0); Hemoglobin 8.1 g/dL (12.0-15.0); Lymphocytes # (Auto) 1.6 K/mcL (1.5-4.8); Lymphocytes % (Auto) 26.4 % (15.5-49.0); Mean Cell Volume 93.8 fL (80.0-100.0); Mean Corpuscular HGB Conc 31.1 g/dL (31.0-36.0); Mean Platelet Volume 9.3 fL (7.4-10.4); Monocytes # (Auto) 0.5 K/mcL (0.1-0.9); Monocytes % (Auto) 8.9 % (1.0-12.0); Platelet Count 175 K/mcL (140-440); RBC 2.77 M/mcL (4.00-5.20); Red Cell Distribution Width 13.8 % (11.5-14.5); WBC 6.2 K/mcL (4.5-11.0)
[2018-12-13 05:44] LABS: ALT/SGPT 7 U/l (0-40); AST/SGOT 14 U/l (0-37); Albumin 2.2 gm/dL (3.2-5.2); Albumin/Globulin Ratio 0.7 (1.0-2.3); Alkaline Phosphatase 81 U/L (39-117); Bilirubin,Direct < 0.2 mg/dL (0.0-0.3); Bilirubin,Total < 0.2 mg/dL (0.0-1.0); Blood Urea Nitrogen 49 mg/dl (8-23); Calcium 8.1 mg/dl (8.6-10.4); Carbon Dioxide 19 mmol/L (22-30); Chloride 107 mmol/L (96-108); Gamma Glutamyl Transpeptidase 39 U/L (5-36); Globulin 3.3 gm/dL (2.2-3.7); Glomerular Filtration Rate 17; Glucose 103 mg/dL (70-105); Lactate Dehydrogenase 137 U/L (94-250); Magnesium 2.4 mg/dL (1.6-2.5); Phosphorous 2.8 mg/dL (2.7-4.5); Potassium 4.4 mmol/L (3.3-5.1); Sodium 138 mmol/L (133-145); Triglycerides 190 mg/dl (<150)
[2018-12-13] MEDS: 0.9 % SODIUM CHLORIDE 10 ML SYRINGE IV SCH (05:58)
[2018-12-13] MEDS: PIPERACILLIN SODIUM/TAZOBACTAM 2.25 GM in DEXTROSE 5% IN WATER 50 ML IV SCH (05:58)
[2018-12-13] MEDS: SODIUM BICARBONATE 650 MG TABLET PO SCH (07:14)
[2018-12-13] MEDS: APIXABAN 2.5 MG TABLET PO SCH (07:14)
[2018-12-13] MEDS ORDERED: OMEPRAZOLE 20 MG CAPSULE PO SCH (07:30)
[2018-12-13] MEDS ORDERED: METOPROLOL SUCCINATE 50 MG TAB.XL.24H PO SCH (09:00)
[2018-12-13] MEDS ORDERED: POTASSIUM CHLORIDE 20 MEQ TABLET PO SCH (09:00)
--- NOTE | 2018-12-15 13:42 | ERCP Procedure Note ---
ERCP Procedure Notes - Procedure Information Patient information: Note initiated : 12/15/18 at 1:39 pm Service Date: 12/10/18 Patient: Jessie Domingo 83 y/o F admitted on 12/07/18 for Shortness of breath. Pre-op diagnosis general: Common bile duct stone. Post-op diagnosis general: Common bile duct stone. Procedure: ERCP Procedure narrative: The procedures, alternatives and risks were discussed with the patient and the patient's questions were answered. With endoscopist-administered intravenous sedation, the Olympus side viewing operating duodenoscope was introduced into the esophagus and advanced to the s econd part of the duodenum without difficulty. The ampulla of Vater appeared normal. The bile duct was selectively cannulated taking care to avoid the pancreatic duct and cholangiogram obtained. The bile duct was markedly dilated and obstructed with a large common duct stone. Papillotomy was performed and stone was extracted with a basket. A balloon was used to sweep the duct. At the end of the procedure, the bile duct appeared to be cleared of all stones. The scope was withdrawn. Assessment: Common bile duct stone.
== END 2018-12-13 12:25 | disposition home health service (06) | DRG 659 ==
LOC: ED 10:02 → ICU 16:28 → MEDSUR 12-09 10:05 → ICU 12-11 10:50 → MEDSUR 12-12 15:15
PROVIDERS: ADMIT Internal Medicine; ATTEND Internal Medicine
PROC: ERCPSTO (2018-12-10 15:15)
PROC: ERCPPAP (ICD-10-PCS; 2018-12-10 15:15)